=== PATIENT | female | born 1955 | race Caucasian/White ===

== ENCOUNTER → 2018-06-01 15:05 | Outpatient (CLI) | payer OTHER, SELFPAY ==
[2018-06-01 16:57] LABS: Absolute Neutrophil Count 5.5 X10^3/uL (2.0-7.7); Basophil# 0.03 X10^3/uL; Basophil% 0.4 % (0-1); Eosinophil# 0.16 X10^3/uL; Eosinophils% 1.9 % (0-5); Hematocrit 40.1 % (37-47); Hemoglobin 13.1 g/dl (12.0-15.0); Lymphocyte % 21.5 % (19-41); Mean Corp Hgb Conc 32.7 g/gl (32-36); Mean Corpuscular Hgb 28.9 pg (27.0-32.0); Mean Corpuscular Volume 88.5 fL (81-99); Mean Platelet Vol. 11.3 fl (6.2-12.0); Monocyte# 0.86 X10^3/uL; Monocyte% 10.3 % (0-10); Neutrophil # 5.51 X10^3/uL (2.7-7.7); Neutrophil % 65.7 % (47-70); Platelet Count 289 K/mm3 (150-450); RBC Distribution Width CV 12.8 % (11.6-14.6); RBC Distribution Width SD 40.8 fl (35.1-43.9); Red Blood Count 4.53 M/mm3 (4.2-5.4); White Blood Count 8.4 K/mm3 (4.4-11.0)
[2018-06-01 17:00] LABS: POSITIVE COUNT NO; POSITIVE DIFFERENTIAL NO; POSITIVE MORPHOLOGY NO
[2018-06-01 17:09] LABS: Vitamin D,25 Hydroxy 14.1 ng/mL (29.95-100.01)
[2018-06-01 17:17] LABS: ALB/GLOB Ratio 0.9 RATIO (0.9-2.4); AST(SGOT) 14 U/L (15-37); Alanine Aminotransfer ALT/SGPT 28 U/L (13-56); Albumin, Serum 3.8 g/dL (3.2-5.0); Alkaline Phosphatase 77 U/L (45-117); Anion Gap 11 (5-15); BUN 14 mg/dL (7-18); BUN/Creat Ratio 16.6 RATIO (10-20); Calcium,Total 8.8 mg/dL (8.5-10.1); Chloride 104 mmol/L (98-107); Creatinine, Serum 0.84 mg/dL (0.55-1.02); EST Glomerular Filtration Rate 73 mL/min (>60); Est Glom Filt Rate - Afr Amer 88 mL/min (>60); Globulin 4.1 g/dL (2.2-4.2); Glucose 93 mg/dL (74-106); Potassium 3.8 mmol/L (3.5-5.1); Protein, Total 7.9 g/dL (6.4-8.2); Sodium Level 141 mmol/L (136-145); Thyroid Stim Hormone (TSH) 1.24 uIU/mL (0.358-3.74)
== END ==
PROVIDERS: Family Provider Family Medicine Geriatric Medicine; PCP Family Medicine Geriatric Medicine; Visit Provider Family Medicine Geriatric Medicine
DX: E55.9 Vitamin D deficiency, unspecified (principal); R53.83 Other fatigue
CPT/HCPCS: 36415; 80053; 82306; 84443; 85025

== ENCOUNTER → 2019-06-11 | Outpatient (CLI) | payer OTHER, SELFPAY ==
[2019-06-11 12:50] LABS: Absolute Lymphocyte Count 1.24 X10^3/uL (0.83-4.51); Absolute Neutrophil Count 3.4 X10^3/uL (2.0-7.7); Basophil# 0.05 X10^3/uL; Basophil% 0.9 % (0-1); Eosinophil# 0.15 X10^3/uL; Eosinophils% 2.8 % (0-5); Hematocrit 41.1 % (37-47); Hemoglobin 13.1 g/dL (12.0-15.0); Lymphocyte # 1.24 X10^3/ul (4.0); Lymphocyte % 22.8 % (19-41); Mean Corp Hgb Conc 31.9 g/dL (32-36); Mean Corpuscular Hgb 28.7 pg (27.0-32.0); Mean Corpuscular Volume 90.1 fL (81-99); Monocyte# 0.61 X10^3/uL; Monocyte% 11.2 % (0-10); NRBC Flagged by Analyzer 0 % (0-5); Neutrophil # 3.37 X10^3/uL (2.7-7.7); Neutrophil % 61.9 % (47-70); Platelet Count 279 K/mm3 (150-450); RBC Distribution Width CV 12.2 % (11.6-14.6); RBC Distribution Width SD 40.3 fl (35.1-43.9); Red Blood Count 4.56 M/mm3 (4.2-5.4); White Blood Count 5.4 K/mm3 (4.4-11.0)
[2019-06-11 13:03] LABS: Vitamin D,25 Hydroxy 17.7 ng/mL (29.95-100.01)
[2019-06-11 13:06] LABS: AST(SGOT) 17 U/L (15-37); Alanine Aminotransfer ALT/SGPT 24 U/L (13-56); Albumin, Serum 3.9 g/dL (3.2-5.0); Alkaline Phosphatase 66 U/L (45-117); Anion Gap 7 (5-15); BUN 14 mg/dL (7-18); BUN/Creat Ratio 21.1 RATIO (10-20); Calcium,Total 8.8 mg/dL (8.5-10.1); Chloride 106 mmol/L (98-107); Creatinine, Serum 0.66 mg/dL (0.55-1.02); EST Glomerular Filtration Rate 95 mL/min (>60); Est Glom Filt Rate - Afr Amer 115 mL/min (>60); Glucose 88 mg/dL (74-106); Potassium 3.8 mmol/L (3.5-5.1); Protein, Total 7.9 g/dL (6.4-8.2); Sodium Level 139 mmol/L (136-145)
== END | disposition home or self-care (01) ==
LOC: POLAB3 11:28
PROVIDERS: Family Provider Family Medicine Geriatric Medicine; PCP Family Medicine Geriatric Medicine; Visit Provider Family Medicine Geriatric Medicine
DX: E55.9 Vitamin D deficiency, unspecified (principal); R53.83 Other fatigue
CPT/HCPCS: 36415; 80053; 82306; 84443; 85025

== ENCOUNTER → 2021-05-03 10:45 | Outpatient (CLI) | payer MEDICARE, BC, SELFPAY ==
[2021-05-03 12:31] LABS: Absolute Lymphocyte Count 1.36 X10^3/uL (0.83-4.51); Absolute Neutrophil Count 3.2 X10^3/uL (2.0-7.7); Basophil# 0.06 X10^3/uL; Basophil% 1.1 % (0-1); Eosinophil# 0.13 X10^3/uL; Eosinophils% 2.5 % (0-5); Hematocrit 41.6 % (37-47); Hemoglobin 13.4 g/dL (12.0-15.0); Lymphocyte # 1.36 X10^3/ul (0.83-4.51); Lymphocyte % 25.7 % (19-41); Mean Corp Hgb Conc 32.2 g/dL (32-36); Mean Corpuscular Hgb 28.9 pg (27.0-32.0); Mean Corpuscular Volume 89.7 fL (81-99); Mean Platelet Vol. 11.2 fl (6.2-12.0); Monocyte# 0.56 X10^3/uL; Monocyte% 10.6 % (0-10); NRBC Flagged by Analyzer 0 % (0-5); Neutrophil # 3.17 X10^3/uL (2.7-7.7); Neutrophil % 59.7 % (47-70); Platelet Count 302 K/mm3 (150-450); RBC Distribution Width CV 12.5 % (11.6-14.6); RBC Distribution Width SD 41.4 fl (35.1-43.9); Red Blood Count 4.64 M/mm3 (4.2-5.4); White Blood Count 5.3 K/mm3 (4.4-11.0)
[2021-05-03 12:53] LABS: Vitamin D,25 Hydroxy 17.4 ng/mL
[2021-05-03 12:59] LABS: ALB/GLOB Ratio 0.9 RATIO (0.9-2.4); AST(SGOT) 20 U/L (15-37); Alanine Aminotransfer ALT/SGPT 30 U/L (13-56); Albumin, Serum 3.8 g/dL (3.2-5.0); Alkaline Phosphatase 67 U/L (45-117); Anion Gap 9 (5-15); BUN 15 mg/dL (7-18); BUN/Creat Ratio 21.4 RATIO (10-20); Calcium,Total 9.1 mg/dL (8.5-10.1); Chloride 107 mmol/L (98-107); EST Glomerular Filtration Rate 89 mL/min (>60); Est Glom Filt Rate - Afr Amer 108 mL/min (>60); Globulin 4.4 g/dL (2.2-4.2); Glucose 92 mg/dL (74-106); Potassium 3.7 mmol/L (3.5-5.1); Protein, Total 8.2 g/dL (6.4-8.2); Sodium Level 139 mmol/L (136-145); Thyroid Stim Hormone (TSH) 1.32 uIU/mL (0.358-3.74)
== END ==
PROVIDERS: PCP Family Medicine Geriatric Medicine; Visit Provider Family Medicine Geriatric Medicine
DX: E55.9 Vitamin D deficiency, unspecified (principal); R53.83 Other fatigue
CPT/HCPCS: 36415; 80053; 82306; 84443; 85025

== ENCOUNTER → 2022-05-15 | Outpatient (CLI) | payer MEDICARE, BC, SELFPAY ==
[2022-05-15 17:29] LABS: Absolute Lymphocyte Count 1.56 X10^3/uL (0.83-4.51); Absolute Neutrophil Count 4.4 X10^3/uL (2.0-7.7); Basophil# 0.05 X10^3/uL; Basophil% 0.7 % (0-1); Eosinophil# 0.27 X10^3/uL; Eosinophils% 3.9 % (0-5); Hematocrit 42.8 % (37-47); Hemoglobin 14.2 g/dL (12.0-15.0); Lymphocyte # 1.56 X10^3/ul (0.83-4.51); Lymphocyte % 22.4 % (19-41); Mean Corp Hgb Conc 33.2 g/dL (32-36); Mean Corpuscular Hgb 29.6 pg (27.0-32.0); Mean Corpuscular Volume 89.4 fL (81-99); Mean Platelet Vol. 11.2 fl (6.2-12.0); Monocyte# 0.68 X10^3/uL; Monocyte% 9.8 % (0-10); NRBC Flagged by Analyzer 0 % (0-5); Neutrophil # 4.39 X10^3/uL (2.7-7.7); Neutrophil % 62.9 % (47-70); Platelet Count 297 K/mm3 (150-450); RBC Distribution Width SD 42.6 fl (35.1-43.9); Red Blood Count 4.79 M/mm3 (4.2-5.4)
[2022-05-15 18:14] LABS: Vitamin D,25 Hydroxy 23.6 ng/mL
[2022-05-15 18:16] LABS: ALB/GLOB Ratio 0.9 RATIO (0.9-2.4); AST(SGOT) 21 U/L (15-37); Alanine Aminotransfer ALT/SGPT 30 U/L (13-56); Alkaline Phosphatase 74 U/L (45-117); Anion Gap 8 (5-15); BUN 13 mg/dL (7-18); BUN/Creat Ratio 19.4 RATIO (10-20); Calcium,Total 9.3 mg/dL (8.5-10.1); Chloride 108 mmol/L (98-107); Creatinine, Serum 0.67 mg/dL (0.55-1.02); EST Glomerular Filtration Rate 93 mL/min (>60); Est Glom Filt Rate - Afr Amer 113 mL/min (>60); Globulin 4.4 g/dL (2.2-4.2); Glucose 110 mg/dL (74-106); Potassium 3.6 mmol/L (3.5-5.1); Protein, Total 8.4 g/dL (6.4-8.2); Sodium Level 140 mmol/L (136-145)
== END | disposition home or self-care (01) ==
LOC: POLAB3 13:46
PROVIDERS: PCP Family Medicine Geriatric Medicine; Visit Provider Family Medicine Geriatric Medicine
DX: E55.9 Vitamin D deficiency, unspecified (principal); R53.83 Other fatigue
CPT/HCPCS: 36415; 80053; 82306; 84443; 85025

== ENCOUNTER → 2023-06-06 | Outpatient (CLI) | payer MEDICARE, BC, SELFPAY ==
[2023-06-06 12:28] LABS: Absolute Lymphocyte Count 1.58 X10^3/uL (0.83-4.51); Absolute Neutrophil Count 3.5 X10^3/uL (2.0-7.7); Basophil# 0.06 X10^3/uL; Eosinophil# 0.22 X10^3/uL; Eosinophils% 3.7 % (0-5); Hematocrit 41.9 % (37-47); Hemoglobin 13.1 g/dL (12.0-15.0); Lymphocyte # 1.58 X10^3/ul (0.83-4.51); Lymphocyte % 26.6 % (19-41); Mean Corp Hgb Conc 31.3 g/dL (32-36); Mean Corpuscular Hgb 28.4 pg (27.0-32.0); Mean Corpuscular Volume 90.7 fL (81-99); Mean Platelet Vol. 10.8 fl (6.2-12.0); Monocyte# 0.56 X10^3/uL; Monocyte% 9.4 % (0-10); NRBC Flagged by Analyzer 0 % (0-5); Neutrophil % 59.1 % (47-70); Platelet Count 298 K/mm3 (150-450); RBC Distribution Width CV 12.7 % (11.6-14.6); RBC Distribution Width SD 42.1 fl (35.1-43.9); Red Blood Count 4.62 M/mm3 (4.2-5.4); White Blood Count 5.9 K/mm3 (4.4-11.0)
[2023-06-06 12:48] LABS: Vitamin D,25 Hydroxy 25.5 ng/mL
[2023-06-06 12:54] LABS: ALB/GLOB Ratio 0.8 RATIO (0.9-2.4); AST(SGOT) 23 U/L (15-37); Alanine Aminotransfer ALT/SGPT 34 U/L (13-56); Albumin, Serum 3.8 g/dL (3.2-5.0); Alkaline Phosphatase 69 U/L (45-117); Anion Gap 5 (5-15); BUN 12 mg/dL (7-18); BUN/Creat Ratio 17.3 RATIO (10-20); Chloride 105 mmol/L (98-107); Creatinine, Serum 0.69 mg/dL (0.55-1.02); EST Glomerular Filtration Rate 90 mL/min (>60); Est Glom Filt Rate - Afr Amer 109 mL/min (>60); Globulin 4.5 g/dL (2.2-4.2); Glucose 97 mg/dL (74-106); Potassium 4.1 mmol/L (3.5-5.1); Protein, Total 8.3 g/dL (6.4-8.2); Sodium Level 138 mmol/L (136-145); Thyroid Stim Hormone (TSH) 1.51 uIU/mL (0.358-3.74)
== END | disposition home or self-care (01) ==
PROVIDERS: PCP Family Medicine Geriatric Medicine; Visit Provider Family Medicine Geriatric Medicine
DX: R53.83 Other fatigue (principal); E55.9 Vitamin D deficiency, unspecified
CPT/HCPCS: 36415; 80053; 82306; 84443; 85025

== ENCOUNTER → 2024-06-08 | Outpatient (CLI) | payer MEDICARE, BC, SELFPAY ==
[2024-06-08 10:07] LABS: Absolute Lymphocyte Count 1.47 X10^3/uL (0.83-4.51); Absolute Neutrophil Count 3.6 X10^3/uL (2.0-7.7); Basophil# 0.04 X10^3/uL; Basophil% 0.7 % (0-1); Eosinophil# 0.21 X10^3/uL; Eosinophils% 3.6 % (0-5); Hematocrit 40.9 % (37-47); Hemoglobin 13.2 g/dL (12.0-15.0); Lymphocyte # 1.47 X10^3/ul (0.83-4.51); Mean Corp Hgb Conc 32.3 g/dL (32-36); Mean Corpuscular Hgb 28.8 pg (27.0-32.0); Mean Corpuscular Volume 89.3 fL (81-99); Mean Platelet Vol. 9.7 fl (6.2-12.0); Monocyte# 0.59 X10^3/uL; NRBC Flagged by Analyzer 0 % (0-5); Neutrophil # 3.56 X10^3/uL (2.7-7.7); Neutrophil % 60.5 % (47-70); Platelet Count 275 K/mm3 (150-450); RBC Distribution Width CV 12.6 % (11.6-14.6); RBC Distribution Width SD 41.1 fl (35.1-43.9); Red Blood Count 4.58 M/mm3 (4.2-5.4); White Blood Count 5.9 K/mm3 (4.4-11.0)
[2024-06-08 10:39] LABS: Vitamin D,25 Hydroxy 9.6 ng/mL
[2024-06-08 11:02] LABS: ALB/GLOB Ratio 0.9 RATIO (0.9-2.4); AST(SGOT) 20 U/L (15-37); Alanine Aminotransfer ALT/SGPT 35 U/L (13-56); Albumin, Serum 3.8 g/dL (3.2-5.0); Alkaline Phosphatase 69 U/L (45-117); Anion Gap 7 (5-15); BUN 9 mg/dL (7-18); BUN/Creat Ratio 12.4 RATIO (10-20); Chloride 107 mmol/L (98-107); Creatinine, Serum 0.72 mg/dL (0.55-1.02); EST Glomerular Filtration Rate 85 mL/min (>60); Est Glom Filt Rate - Afr Amer 103 mL/min (>60); Globulin 4.3 g/dL (2.2-4.2); Glucose 107 mg/dL (74-106); Protein, Total 8.1 g/dL (6.4-8.2); Sodium Level 139 mmol/L (136-145)
== END | disposition home or self-care (01) ==
LOC: POLAB3 09:57
PROVIDERS: PCP Family Medicine Geriatric Medicine; Visit Provider Family Medicine Geriatric Medicine
DX: R53.83 Other fatigue (principal); E55.9 Vitamin D deficiency, unspecified
CPT/HCPCS: 36415; 80053; 82306; 84443; 85025

== ENCOUNTER 2025-02-14 15:51 | Emergency (ER) | payer MEDICARE, BC, SELFPAY ==
[2025-02-14 15:53] VITALS: BP 140/84; PULSE 87; RESP 16; TEMP 36.6; O2SAT 98; BMI 33.3
--- NOTE | 2025-02-14 16:20 | ED.RN ---
Patient leg wrapped with miriam bandage per Dr. Aparicio's order. Crutches brought bedside to assist patient up to a standing position. Patient rolled to L side and sat up in bed moaning. Patient stated I think I need to get up on the other side. This nurse replied that the pain will be present on the other side also and encouraged patient to continue trying to stand as she was already in a near standing position. Patient began screaming at this nurse and stated You are going to come over to this side of the bed right now and you are going to bring the crutches with you. This nurse asked the patient to not make demands of this RN, as this RN was trying to help the patient. This RN then went around to the R side of the bed without further prompting by patient to assist patient with standing. 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 Patient stated that she saw my face when I walked into the room, despite this RN having already been in the room 3 times prior. Patient demanded my name and this RN gave my name to her. Patient put her hand up towards my face, screamed that I needed to get out of my room now and get someone else. research and evaluation analyst Yoanna notified of situation and went bedside to speak to patient.
--- NOTE | 2025-02-14 16:25 | EX.ED.DYSGE1 ---
HPI History of Present Illness Chief Complaint: Lower Extremity Injury Narrative Narrative: Chief complaint and HPI: Left posterior thigh pain. 69-year-old female with past medical history of depression and anxiety presents for evaluation of left posterior thigh pain. Patient states prior to arrival she accidentally slipped on a dog bone that was under a blanket causing her to fall with her left lower extremity out in front of her. Patient states she developed pain in her left posterior thigh that makes it difficult to ambulate. Mild swelling in the area. Denies any numbness or tingling. Did not hit her head. No LOC. Denies pain elsewhere. Denies any pain in the hip joint or knee. Review of systems: See HPI Medications: As listed on the chart Allergies: As listed on the chart PFSH: Per chart Vital signs: As listed on the chart. Reviewed. Physical exam: Gen: A&O x3, NAD Head: Normocephalic, atraumatic Eyes: No sclera icterus, conjunctiva clear, PERRL ENT: Moist mucous membranes, atraumatic Neck: Full range of motion CV: RRR, no murmurs, no peripheral edema Resp: Lungs CTA BL, no w/r/c GI: Abd soft, non-distended, non-tender, no r/r/g Musc: Full range of motion of all of the extremities including the left lower extremity, no deformity, she has mild swelling and pain to palpation of the left hamstring muscle-muscle is intact with good flexion and extension of the hip and knee, no ecchymosis/crepitus/erythema/warmth, no tenderness of pelvis/hip joint/knee, no joint swelling, compartments soft, femoral/DP PT pulses +2 bilaterally, strength is 5 out of 5, good capillary, sensation intact Skin: Warm, dry Neuro: Alert, oriented, grossly intact Psych: Cooperative, appropriate mood and affect [facility] Medical History (Updated 02/14/25 @ 16:[address] Ever Lo, DO) Anxiety Depression Home Medications ?Medication ?Instructions ?Recorded ?Last Taken ?Type acetaminophen 325 mg capsule 325 mg PO ONCE PRN 04/03/23 Unknown History (Tylenol) citalopram 10 mg tablet (Celexa) 10 mg PO DAILY 04/03/23 Unknown History ibuprofen 200 mg capsule 200 mg PO Q6H PRN 04/03/23 Unknown History cyclobenzaprine 5 mg tablet 5 mg PO TID PRN muscle spasm 3 02/14/25 Unknown Rx days #9 tabs Allergy/AdvReac Type Severity Reaction Status Date / Time No Known Allergies Allergy Verified 02/14/25 15:54 Surgical History (Updated 02/14/25 @ 16:00 by Lynda Chavez) H/O rhinoplasty Social History Smoking Status: Never smoker EXAM Physical Exam Const Vital Signs: 02/14/25 15:53 02/14/25 16:38 Temperature 97.8 F 97.8 F Temperature Source Oral Pulse Rate 87 87 Respiratory Rate 16 16 Blood Pressure 140/84 H 140/84 H Blood Pressure Mean 102 102 Pulse Ox 98 98 Oxygen Delivery Method Room Air MDM MDM MDM Narrative Medical decision making narrative: 69-year-old female with past medical history of depression and anxiety presents for evaluation of left posterior thigh pain. Patient states prior to arrival she accidentally slipped on a dog bone that was under a blanket causing her to fall with her left lower extremity out in front of her. Patient states she developed pain in her left posterior thigh that makes it difficult to ambulate. Denies injury elsewhere. Did not hit her head. No LOC. See physical exam findings. Patient has mild swelling and tenderness in the left hamstring muscle. Muscles intact with good flexion and extension of the hip and knee. She has no deformity. She is neurovascularly intact. She has no pain or swelling in the joints. She has full range of motion of the lower extremity with intact strength. Suspect pain is secondary to a hamstring injury. I do not think any x-rays are needed at this time. Patient in agreement. Patient was educated on RICE therapy. Will apply Michael wrap to the left thigh for compression. [place] given for pain as patient did not drive. Will prescribe crutches for ambulation as needed. Patient tolerated ambulating with crutches well. Tylenol Motrin as needed for pain. Will give muscle relaxers for muscle spasm as needed. Follow-up with primary care physician. Return precautions explained. She confirmed understand plan. Patient stable to discharge home. Impression: 1. Left hamstring strain 2. Mechanical fall Discharge Plan Triage Chief Complaint: Lower Extremity Injury ED Provider: Klusty-Nish,Ever Dx/Rx/DC Orders Clinical Impression: Hamstring strain Instructions: ED Muscle Strain, Extremity, ED RICE Prescriptions: New cyclobenzaprine 5 mg tablet 5 mg PO TID PRN (Reason: muscle spasm) 3 Days Qty: 9 0RF No Action citalopram [Celexa] 10 mg tablet 10 mg PO DAILY acetaminophen [Tylenol] 325 mg capsule 325 mg PO ONCE PRN ibuprofen 200 mg capsule 200 mg PO Q6H PRN Primary Care Provider: Will Nj Chi Referrals: Will Nj Chi, MD [Primary Care Provider] - 3-5 Days Activity Restrictions/Additional Instructions: Follow-up with primary care physician. Crutches as needed for ambulation. Tylenol and Motrin for pain. Muscle relaxers as needed for muscle spasm. Muscle relaxers can increase falls, confusion, fatigue, lightheadedness. Do not drive or operate heavy machinery while taking these. Print Language: Burkinan Disposition Disposition: Home, Self Care
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
--- NOTE | 2025-02-14 16:30 | ED.RN ---
PT. SEEM AMBULATING W/ CRUTCHES IN ROOM, NO SOCKS OR SHOES IN PLACE. PT. OFFERED SHOES OR SOCKS. PT. STATED I DON'T HAVE SHOES. I DO NOT NEED SOCKS PT. EDUCATED ON SAFETY RISK, BUT DECLINED SOCKS AT THIS TIME
[2025-02-14] MEDS: HYDROcodone Bitartrate/Apap 5/325 Tablet PO (16:32)
[2025-02-14 16:38] VITALS: BP 140/84; PULSE 87; RESP 16; TEMP 36.6; O2SAT 98
== END 2025-02-14 17:08 | disposition home or self-care (01) ==
PROVIDERS: Emergency Provider Surgery; PCP Family Medicine Geriatric Medicine; Visit Provider Surgery
DX: S76.312A Strain of muscle, fascia and tendon of the posterior muscle group at thigh level, left thigh, initial encounter (principal); W01.0XXA Fall on same level from slipping, tripping and stumbling without subsequent striking against object, initial encounter; F32.A Depression, unspecified; F41.9 Anxiety disorder, unspecified; Z79.899 Other long term (current) drug therapy
CPT/HCPCS: 99285

== ENCOUNTER 2025-05-01 18:24 | Emergency (ER) | payer OTHER, MEDICARE, BC, SELFPAY ==
[2025-05-01 18:27] VITALS: BP 177/84; PULSE 82; RESP 16; TEMP 36.6; O2SAT 97; BMI 32.0
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
--- NOTE | 2025-05-01 19:12 | EKG12_ITS ---
Test Reason : DYSRHYTHMIA Blood Pressure : */* mmHG Vent. Rate : 73 BPM Atrial Rate : 73 BPM P-R Int : 172 ms QRS Dur : 132 ms QT Int : 430 ms P-R-T Axes : 52 -45 17 degrees QTcB Int : 473 ms Normal sinus rhythm Right bundle branch block Left anterior fascicular block Bifascicular block Abnormal ECG Confirmed by LISA VAZQUEZ, RHIANNA ([id number]), multimedia editor CHET MURPHY ([id number]) on 05/02/2025 8:38:45 AM Referred By: Confirmed By: RHIANNA GONZALEZ MD
[2025-05-01 19:44] LABS: Hematocrit 40.1 % (37-47); Hemoglobin 12.8 g/dL (12.0-15.0); Immature Granulocytes Count 0.030 X10^3/uL (0.0-0.0); Mean Corp Hgb Conc 31.9 g/dL (32-36); Mean Corpuscular Volume 88.3 fL (81-99); Mean Platelet Vol. 10.2 fl (6.2-12.0); NRBC Flagged by Analyzer 0 % (0-5); Platelet Count 264 K/mm3 (150-450); RBC Distribution Width CV 12.5 % (11.6-14.6); RBC Distribution Width SD 40.4 fl (35.1-43.9); Red Blood Count 4.54 M/mm3 (4.2-5.4); White Blood Count 6.2 K/mm3 (4.4-11.0)
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
--- OUTSIDE RECORDS SUMMARY | 2025-05-01 19:56 | XMS RPT_ITS | CCD ---
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 Will Nj Chi Primary Care Provider Dr. Will Nj Chi Referring Provider GLENROY Acharya Attending Provider Dr. Will Nj MD, Chi Primary Care Provider Dr. Ever Lo DO Emergency Provider Will Nj Chi Primary Care Unavailable Ever Lo Attending Unavailabl e Will Nj Chi Attending Unavailable Will Nj Chi Primary Care Unavailable Allergies Allergy Classification Reported Allergen(s) Allergy Type Date of Onset Reaction(s) Facility (3 sources) Azithromycin; Translations: [AZITHROMYCIN] Drug Allergy 12-24-2005 [facility] Work Phone: (3 sources) Erythromycin; Translations: [ERYTHROMYCIN] Drug Allergy 12-24-2005 [facility] Work Phone: Medications Current Medications Medication Drug Class(es) Dates Sig (Normalized) Sig (Original) acetaminophen 325 mg oral capsule (2 sources) Start: 04-03-2023 take 1 capsule by mouth once as needed Acetaminophen (Tylenol) 325 mg capsule Active 325 mg PO ONCE as needed April 03, 2023 12:00am citalopram 10 mg oral tablet (4 sources) Serotonin Reuptake Inhibitor Start: 04-03-2023 take 1 tablet by mouth once daily Citalopram (Celexa) 10 mg tablet Active 10 mg PO DAILY April 03, 2023 12:00am take 1 tablet by mouth once terry y citalopram (CELEXA) 20 mg tablet Take 20 mg by mouth once daily. 0 Active Comment on above: Take 20 mg by mouth once daily. cyclobenzaprine hydrochloride 5 mg oral tablet (1 source) Muscle Relaxant Start: 025 take 1 tablet by mouth three times daily as needed for muscle spasms Cyclobenzaprine 5 mg tablet Active 5 mg PO THREE TIMES A DAY as needed for muscle spasm 9 3 0 February 14, 2025 12:00am ibuprofen 200 mg oral capsule (2 sources) Nonsteroidal Anti-inflammatory Drug Start: 023 take 1 capsule by mouth every six hours as needed Ibuprofen 200 mg capsule Active 200 mg PO EVERY 6 HOURS as needed April 03, 2023 12:00am Completed/Discontinued Medications Medication Drug Class(es) Dates Sig (Normalized) Sig (Original) amoxicillin 875 mg / clavulanate 125 mg oral tablet (2 sources) Penicillin-class Antibacterial Start: 04-03-2023 End: 04-13-2023 Amoxicillin-Pot Clavulanate 875-125 mg tablet Discontinued 1 {tbl} PO Q12H 20 10 0 April 03, 2023 12:00am April 12, 2023 12:00am April 13, 2023 12:04am Acute sinusitis, unspecified Start: 04-03-2023 End: 04-13-2023 take 1 tablet by mouth every twelve hours Amoxicillin-Pot Clavulanate Discontinued 1 TABLET PO Q12H 20 10 April 02, 2023 11:00pm April 12, 2023 11:04pm DULoxetine 30 mg delayed release oral capsule (2 sources) Serotonin and Norepinephrine Reuptake Inhibitor Start: 10-29-2011 take 1 capsule by mouth once daily duloxetine (CYMBALTA) 30 mg ORAL capsule Take 1 capsule by mouth once daily. 30 capsule 0 10/29/2011 Active Comment on above: Take 1 capsule by [facility] once daily. gentamicin 0.003 mg/mg ophthalmic ointment (2 sources) Start: 02-28-2018 gentamicin (GENTAK) 0.3 % (3 mg/gram) ophthalmic ointment Indications: Irritation of left eye Use 1 application in the left eye three times daily. 20 g 0 02/28/2018 Active Comment on above: Use 1 application in the left eye three times daily. PARoxetine hydrochloride 10 mg oral tablet (4 sources) Serotonin Reuptake Inhibitor Start: 10-28-2011 take 1 tablet by mouth once daily paroxetine (PAXIL) 10 mg ORAL tablet Take 1 tablet by mouth once daily. 30 tablet 5 10/28/2011 Active Start: 10-28-2011 take 1 tablet by rayo th once daily paroxetine (PAXIL) 20 mg ORAL tablet Take 1 tablet by mouth once daily. Take with 10 mg tablet for a total of 30 mg daily. 30 tablet 5 10/28/2011 Active Comment on above: Take 1 tablet by rayo th once daily. Take 1 tablet by rayo th once daily. Take with 10 mg tablet for a total of 30 mg daily. Problems Active Problems Problem Classification Problem Date Documented Da te Episodic/Chronic Anxiety disorders (4 sources) Panic disorder without agoraphobia; Translations: [Panic disorder [episodic paroxysmal anxiety]] Onset: 08-21-2009 05-15-2006 Chronic Disorders of lipid metabolism (2 sources) Mixed hyperlipidemia; Translations: [Mixed hyperlipidemia] Onset: 05-15-2006 05-15-2006 Chronic Disorders of teeth and jaw (3 sources) Dental abscess; Translations: [Periapical abscess without sinus] 04-03-2023 Episodic Other connective tissue disease (1 source) Pain in left thigh; Translations: [Pain in left thigh] Onset: 02-21-2025 Episodic Other ear and sense organ disorders (2 sources) Hearing loss; Translations: [Unspecified hearing loss, unspecified ear] Onset: 05-15-2006 05-15-2006 Chronic Other nutritional; endocrine; and metabolic disorders (2 sources) Obesity; Translations: [Obesity, unspecified] Onset: 05-15-2006 05-15-2006 Chronic Other upper respiratory infections (2 sources) Sore throat symptom; Translations: [Acute pharyngitis, unspecified] Episodic Prolapse of female genital organs (2 sources) Incomplete uterovaginal prolapse; Translations: [Incomplete uterovaginal prolapse] Onset: 08-04-2006 08-21-2009 Chronic Residual codes; unclassified (1 source) Influenza-like symptoms; Translations: [Other general symptoms and signs] Episodic Sprains and strains (1 source) Hamstring injury; Translations: [Strain of muscle, fascia and tendon of the posterior muscle group at thigh level, unspecified thigh, initial encounter] 02-14-2025 Episodic Past or Other Problems Problem Classification Problem Date Documented Da te Episodic/Chronic Abdominal hernia (2 sources) Inguinal hernia; Translations: [Unilateral inguinal hernia, without obstruction or gangrene, not specified as recurrent] Onset: 09-22-2008 08-21-2009 Episodic Malaise and fatigue (1 source) Other fatigue; Translations: [Other fatigue] Onset: 07-06-2024 Episodic Other lower respiratory disease (2 sources) Cough; Translations: [Cough] Onset: 09-22-2008 08-21-2009 Episodic Other non-traumatic joint disorders (2 sources) Bilateral shoulder joint pain; Translations: [Pain in right shoulder] Onset: 06-03-2016 06-03-2016 Episodic Spondylosis; intervertebral disc disorders; other back problems (2 sources) Spinal stenosis in cervical region; Translations: [Spinal stenosis, cervical region] Onset: 06-05-2016 06-05-2016 Episodic Results Test Name Value Interpretation Reference Range Facility Emergency Department Summary on 02-14-2025 Emergency Department Summary [facility] Medical Records Department [address] [place] [address] Emergency Department Summary 02/14/25 MR#: [id number] Acct: [id number] Name: ABBY COULTER Rep #: [id number] : [id number] From: Ever Lo DO PCP: Dr. Will Nj MD Status:REG ER Location: ED HPI History of Present Illness Chief Complaint: Lower Extremity Injury Narrative Narrative: Chief complaint and HPI: Left posterior thigh pain. 69-year-old female with past medical history of depression and anxiety presents for evaluation of left posterior thigh pain. Patient states prior to arrival she accidentally slipped on a dog bone that was under a blanket causing her to fall with her left lower extremity out in front of her. Patient states she developed pain in her left posterior thigh that makes it difficult to ambulate. Mild swelling in the area. Denies any numbness or tingling. Did not hit her head. No LOC. Denies pain elsewhere. Denies any pain in the hip joint or knee. Review of systems: See HPI Medications: As listed on the chart Allergies: As listed on the chart PFSH: Per chart Vital signs: As listed on the chart. Reviewed. Physical exam: Gen: A O x3, NAD Head: Normocephalic, atraumatic Eyes: No sclera icterus, conjunctiva clear, PERRL ENT: Moist mucous membranes, atraumatic Neck: Full range of motion CV: RRR, no murmurs, no peripheral edema Resp: Lungs CTA BL, no w/r/c GI: Abd soft, non-distended, non-tender, no r/r/g Musc: Full range of motion of all of the extremities including the left lower extremity, no deformity, she has mild swelling and pain to palpation of the left hamstring muscle-muscle is intact with good flexion and extension of the hip and knee, no ecchymosis/crepitus/ erythema/warmth, no tenderness of pelvis/hip joint/knee, no joint swelling, compartments soft, femoral/DP PT pulses +2 bilaterally, strength is 5 out of 5, good capillary, sensation intact Skin: Warm, dry Neuro: Alert, oriented, grossly intact Psych: Cooperative, appropriate mood and affect PFSH PFSH Medical History (Updated 02/14/25 @ 16:[address] Ever Lo DO) Anxiety Depression Home Medications ???Medication ???Instructions ???Recorded ???Last Taken ???Type acetaminophen 325 mg capsule 325 mg PO ONCE PRN 04/03/23 Unknow n History (Tylenol) citalopram 10 mg tablet (Celexa) 10 mg PO DAILY 04/03/23 Unknown Hi story ibuprofen 200 mg capsule 200 mg PO Q6H PRN 04/03/23 Unknown History cyclobenzaprine 5 mg tablet 5 mg PO TID PRN muscle spasm 3 Unknown Rx days #9 tabs Allergy/AdvReac Type Severity Reaction Status Date / Time No Known Allergies Allergy Verified 02/14/25 15:54 Surgical History (Updated 02/14/25 @ 16:00 by Lynda Chavez) H/O rhinoplasty Social History Smoking Status: Never smoker EXAM Physical Exam Const Vital Signs: 02/14/25 15:53 02/14/25 16:38 Temperature 97.8 F 97.8 F Temperature Source Oral Pulse Rate 87 87 Respiratory Rate 16 16 Blood Pressure 140/84 H 140/84 H Blood Pressure Mean 102 102 Pulse Ox 98 98 Oxygen Delivery Method Room Air MDM MDM MDM Narrative Medical decision making narrative: 69-year-old female with past medical history of depression and anxiety presents for evaluation of left posterior thigh pain. Patient states prior to arrival she accidentally slipped on a dog bone that was under a blanket causing her to fall with her left lower extremity out in front of her. Patient states she developed pain in her left posterior thigh that makes it difficult to ambulate. Denies injury elsewhere. Did not hit her head. No LOC. See physical exam findings. Patient has mild swelling and tenderness in the left hamstring muscle. Muscles intact with good flexion and extension of the hip and knee. She has no deformity. She is neurovascularly intact. She has no pain or swelling in the joints. She has full range of motion of the lower extremity with intact strength. Suspect pain is secondary to a hamstring injury. I do not think any x-rays are needed at this time. Patient in agreement. Patient was educated on RICE therapy. Will apply Michael wrap to the left thigh for compression. Merrick given for pain as patient did not drive. Will prescribe crutches for ambulation as needed. Patient tolerated ambulating with crutches well. Tylenol Motrin as needed for pain. Will give muscle relaxers for muscle spasm as needed. Follow-up with primary care physician. Return precautions explained. She confirmed understand plan. Patient stable to discharge home. Impression: 1. Left hamstring strain 2. Mechanical fall Discharge Plan Triage Chief Complaint: Lower Extremity Injury ED Provider: Ever Lo Dx/Rx (more content not included)... Normal [facility] CBC W/Diff, Automatedon 05-28 Absolute Lymph 1.47 X10 3/uL Normal 0.83-4.51 [facility] Comment on above: Performed By: #### L 100.0100, L500.4050, L506.1000, L501.9520 #### [facility] [address] [place], [address] Absolute Neut 3.6 X10 3/uL Normal 2.0-7.7 [facility] Comment on above: Performed By: #### L 100.0100, L500.4050, L506.1000, L501.9520 #### [facility] [address] [place], [address] Basophils/100 WBC (Bld) 0.7 % Normal 0-1 [facility] Comment on above: Performed By: #### L 100.0100, L500.4050, L506.1000, [id number] #### [facility] [address] [place], [address] Eosinophils/100 WBC (Bld) 3.6 % Normal 0-5 [facility] Comment on above: Performed By: #### L 100.0100, L500.4050, L506.1000, L501.9520 #### [facility] [address] [place], [address] Erythrocyte distribution width (RBC) [Ratio] 12.6 % Normal 11.6-14.6 [facility] Comment on above: Performed By: #### L 100.0100, L500.4050, L506.1000, [id number] #### [facility] [address] [place], [address] Hematocrit (Bld) [Volume fraction] 40.9 % Normal 37-47 [facility] Comment on above: Performed By: #### L 100.0100, L500.4050, L506.1000, L501.9520 #### [facility] [address] [place], [address] Hemoglobin (Bld) [Mass/Vol] 13.2 g/dL Normal 12.0-15.0 [facility] Comment on above: Performed By: #### L 100.0100, L500.4050, L506.1000, L501.9520 #### [facility] [address] [place], [address] IG% 0.200 Normal 0.0-0.9 [facility] Comment on above: Result Comment: IG% - Immature Granulocytes (promyelocytes, myelocytes and metamyelocytes) > 1% indicates that a LEFT SHIFT is Present. Performed By: #### L 100.0100, L500.4050, L506.1000, L501.9520 #### [facility] [address] [place], [address] Lymphocytes/100 WBC (Bld) 25.0 % Normal 19-41 [facility] Comment on above: Performed By: #### L 100.0100, L500.4050, L506.1000, [id number] #### [facility] [address] [place], [address] MCH (RBC) [Entitic mass] 28.8 pg Normal 27.0-32.0 [facility] Comment on above: Performed By: #### L 100.0100, L500.4050, L506.1000, L501.9520 #### [facility] [address] [place], [address] MCHC (RBC) [Mass/Vol] 32.3 g/dL Normal 32-36 [facility] Comment on above: Performed By: #### L 100.0100, L500.4050, L506.1000, L501.9520 #### [facility] [address] [place], [address] MCV (RBC) [Entitic vol] 89.3 fL Normal 81-[address] [facility] Comment on above: Performed By: #### L 100.0100, L500.4050, L506.1000, L501.9520 #### [facility] [address] [place], [address] Monocytes/100 WBC (Bld) 10.0 % Normal 0-10 [facility] Comment on above: Performed By: #### L 100.0100, L500.4050, L506.1000, L501.9520 #### [facility] [address] [place], [address] Neutrophils/100 WBC (Bld) 60.5 % Normal 47-70 [facility] Comment on above: Performed By: #### L 100.0100, L500.4050, L506.1000, L501.9520 #### [facility] [address] [place], [address] Nucleated RBC (Bld) [#/Vol] 0 10*3/uL Normal 0-5 [facility] Comment on above: Performed By: #### L 100.0100, L500.4050, L506.1000, L501.9520 #### [facility] [address] [place], [address] Platelet mean volume (Bld) [Entitic vol] 9.7 fL Normal 6.2-12.0 [facility] Comment on above: Performed By: #### L 100.0100, L500.4050, L506.1000, L501.9520 #### [facility] [address] [place], [address] Platelets (Bld) [#/Vol] 275 10*3/uL Normal 150-450 [facility] Comment on above: Performed By: #### L 100.0100, L500.4050, L506.1000, L501.9520 #### [facility] [address] [place], [address] RBC (Bld) [#/Vol] 4.58 10*6/uL Normal 4.2-5.4 [facility] Comment on above: Performed By: #### L 100.0100, L500.4050, L506.1000, L501.9520 #### [facility] [address] [place], [address] RDW SD 41.1 fl Normal 35.1-43.9 [facility] Comment on above: Performed By: #### L 100.0100, L500.4050, L506.1000, L501.9520 #### [facility] [address] [place], [address] WBC (Bld) [#/Vol] 5.9 10*3/uL Normal 4.4-11.0 [facility] Comment on above: Performed By: #### L 100.0100, L500.4050, L506.1000, L501.9520 #### [facility] [address] [place], [address] Comprehensive Metabolic Prof ilon 06-08-2024 Albumin [Mass/Vol] 3.8 g/dL Normal 3.2-5.0 [facility] Comment on above: Performed By: #### L 100.0100, L500.4050, L506.1000, L501.9520 #### [facility] [address] [place], [address] Albumin/Globulin [Mass ratio] 0.9 {ratio} Normal 0.9-2.4 [facility] Comment on above: Performed By: #### L 100.0100, L500.4050, L506.1000, L501.9520 #### [facility] [address] [place], [address] ALK P 69 U/L Normal 45-117 [facility] Comment on above: Performed By: #### L 100.0100, L500.4050, L506.1000, L501.9520 #### [facility] [address] [place], [address] ALT [Catalytic activity/Vol] 35 U/L Normal 13-56 [facility] Comment on above: Performed By: #### L 100.0100, L500.4050, L506.1000, L501.9520 #### [facility] [address] [place], [address] AST [Catalytic activity/Vol] 20 U/L Normal 15-37 [facility] Comment on above: Performed By: #### L 100.0100, L500.4050, L506.1000, L501.9520 #### [facility] [address] [place], [address] Bilirubin [Mass/Vol] 0.50 mg/dL Normal 0.20-1.00 [facility] Comment on above: Result Comment: For patients on eltrombopag therapy, use of Dimension Mccune TBIL is not recommended. Performed By: #### L 100.0100, L500.4050, L506.1000, L501.9520 #### [facility] [address] [place], [address] BUN/CRE 12.4 RATIO Normal 10-20 [facility] Comment on above: Performed By: #### L 100.0100, L500.4050, L506.1000, L501.9520 #### [facility] [address] [place], [address] CA,Total 9.0 mg/dL Normal 8.5-10.1 [facility] Comment on above: Performed By: #### L 100.0100, L500.4050, L506.1000, L501.9520 #### [facility] [address] [place], [address] Chloride [Moles/Vol] 107 mmol/L Normal 98-107 [facility] Comment on above: Performed By: #### L 100.0100, L500.4050, L506.1000, L501.9520 #### [facility] [address] [place], [address] CO2 [Moles/Vol] 25.0 mmol/L Normal 21.0-32.0 [facility] Comment on above: Performed By: #### L 100.0100, L500.4050, L506.1000, L501.9520 #### [facility] [address] [place], [address] Creatinine [Mass/Vol] 0.72 mg/dL Normal 0.55-1.02 [facility] Comment on above: Result Comment: The validity of the calculated GFR GFRAA in patients over 70 years has not been determined. Clinical correlation is essential. Performed By: #### L 100.0100, L500.4050, L506.1000, L501.9520 #### [facility] [address] [place], [address] EST GFR - AA 103 mL/min Normal >60 [facility] Comment on above: Result Comment: Afri can Gambian GFR Calc Performed By: #### L 100.0100, L500.4050, L506.1000, L501.9520 #### [facility] [address] [place], [address] GAP 7 Normal 5-15 [facility] Comment on above: Performed By: #### L 100.0100, L500.4050, L506.1000, L501.9520 #### [facility] [address] [place], [address] GFR/1.73 sq M.predicted among non-blacks MDRD (S/P/Bld) [Vol rate/Area] 85 mL/min/{1.73_m2} Normal >60 [facility] Comment on above: Result Comment: Non- GFR Calc Performed By: #### L 100.0100, L500.4050, L506.1000, L501.9520 #### [facility] [address] [place], [address] Globulin (S) [Mass/Vol] 4.3 g/dL High 2.2-4.2 [facility] Comment on above: Performed By: #### L 100.0100, L500.4050, L506.1000, L501.9520 #### [facility] [address] [place], [address] Glucose [Mass/Vol] 107 mg/dL High 74-106 [facility] Comment on above: Result Comment: Fast ing Glucose result from 100 to 125 mg/dL suggests IMPAIRED HOMEOSTASIS per A.D.A. criteria. Performed By: #### L 100.0100, L500.4050, L506.1000, L501.9520 #### [facility] [address] [place], [address] Potassium [Moles/Vol] 4.0 mmol/L Normal 3.5-5.1 [facility] Comment on above: Performed By: #### L 100.0100, L500.4050, L506.1000, L501.9520 #### [facility] [address] [place], [address] Sodium [Moles/Vol] 139 mmol/L Normal 136-145 [facility] Comment on above: Performed By: #### L 100.0100, L500.4050, L506.1000, L501.9520 #### [facility] [address] [place], [address] T PROT 8.1 g/dL Normal 6.4-8.2 [facility] Comment on above: Performed By: #### L 100.0100, L500.4050, L506.1000, L501.9520 #### [facility] [address] [place], [address] Urea nitrogen [Mass/Vol] 9 mg/dL Normal 7-18 [facility] Comment on above: Performed By: #### L 100.0100, L500.4050, L506.1000, L501.9520 #### [facility] [address] [place], [address] Thyroid Stim Hormone (TSH)on 06-08-2024 TSH 2.260 uIU/mL Normal 0.358-3.740 [facility] Comment on above: Performed By: #### L 100.0100, L500.4050, L506.1000, L501.9520 #### [facility] [address] [place], [address] Vitamin D,25 Hydroxyon 06-08 Vitamin D 25-OH 9.6 ng/mL Normal [facility] Comment on above: Result Comment: Maite min D 25(OH) Status Range Deficiency <20 ng/mL (50nmol/L) Insufficiency 20 - 30 ng/mL (50 - 75 nmol/L) Sufficiency 30 - 100 ng/mL (75 - 250 nmol/L) Toxicity >100 ng/mL (>250 nmol/L) Performed By: #### L 100.0100, L500.4050, L506.1000, L501.9520 #### [facility] [address] [place], [address] Absolute lymphocyte countOrd ered By: Will Clem on 06-06-2023 Lymphocytes Auto (Unsp spec) [#/Vol] 1.58 10*3/uL 0.83-4.51 [facility] Basophil percentageOrdered B y: Will Nj on 06-06-2023 Basophils/100 WBC (Bld) 1.0 % 0-1 [facility] Bilirubin [Mass/Vol] 0.50 mg/dL 0.20-1.00 [facility] Comment on above: For patients on eltr ombopag therapy, use of Dimension Mccune TBIL is not recommended. Chloride [Moles/Vol] 105 mmol/L 98-107 [facility] Eosinophils/100 WBC (Bld) 3.7 % 0-5 [facility] Glucose [Mass/Vol] 97 mg/dL 74-106 [facility] Neutrophils (Bld) [#/Vol] 3.5 10*3/uL 2.0-7.7 [facility] Neutrophils/100 WBC (Bld) 59.1 % 47-70 [facility] Potassium [Moles/Vol] 4.1 mmol/L 3.5-5.1 [facility] Protein [Mass/Vol] 8.3 g/dL 6.4-8.2 [facility] Sodium [Moles/Vol] 138 mmol/L 136-145 [facility] WBC (Bld) [#/Vol] 5.9 10*3/uL 4.4-11.0 [facility] Blood erythrocytes count (nu mber/volume)Ordered By: Will Nj on 06-06-2023 RBC (Bld) [#/Vol] 4.62 10*6/uL 4.2-5.4 [facility] Blood hemoglobin measurement (mass/volume)Ordered By: Will Nj on 06-06-2023 Hemoglobin (Bld) [Mass/Vol] 13.1 g/dL 12.0-15.0 [facility] Blood lymphocytes/100 leukoc ytesOrdered By: Will Nj on 06-06-2023 Lymphocytes/100 WBC (Bld) 26.6 % 19-41 [facility] Blood monocytes/100 leukocyt esOrdered By: Will Nj on 06-06-2023 Monocytes/100 WBC (Bld) 9.4 % 0-10 [facility] Blood platelet mean volumeOr dered By: Will Nj on 06-06-2023 Platelet mean volume (Bld) [Entitic vol] 10.8 fL 6.2-12.0 [facility] Determination of erythrocyte mean corpuscular volume (MCV)Ordered By: Will Nj on 06-06-2023 MCV (RBC) [Entitic vol] 90.7 fL 81-99 [facility] Hematocrit Auto (Bld) [Volum e fraction]Ordered By: Will Nj on 06-06-2023 Hematocrit (Bld) [Volume fraction] 41.9 % 37-47 [facility] - Chemistry and C hemistry - challengeOrdered By: Will Nj on 06-06-2023 ALP [Catalytic activity/Vol] 69 U/L 45-117 [facility] ALT [Catalytic activity/Vol] 34 U/L 13-56 [facility] CO2 [Moles/Vol] 28.0 mmol/L 21.0-32.0 [facility] Globulin (S) [Mass/Vol] 4.5 g/dL 2.2-4.2 [facility] Urea nitrogen/Creatinine [Mass ratio] 17.3 mg/mg 10-20 [facility] Laboratory - Hematology and Cell countsOrdered By: Will Nj on 06-06-2023 Erythrocyte distribution width (RBC) [Entitic vol] 42.1 fL 35.1-43.9 [facility] Erythrocyte distribution width (RBC) [Ratio] 12.7 % 11.6-14.6 [facility] Immature granulocytes/100 WBC (Bld) 0.200 % 0.0-0.9 [facility] Comment on above: IG% - Immature Granu locytes (promyelocytes, myelocytes and metamyelocytes) > 1% indicates that a LEFT SHIFT is Present. MCH (RBC) [Entitic mass] 28.4 pg 27.0-32.0 [facility] Nucleated RBC/100 WBC (Bld) [Ratio] 0 % 0-5 [facility] MCHC Auto (RBC) [Mass/Vol]Or dered By: Will Nj on 06-06-2023 MCHC (RBC) [Mass/Vol] 31.3 g/dL 32-36 [facility] No Panel InformationOrdered By: Will Nj on 06-06-2023 Estimated GFR (MDRD) Amer 109 mL/min >60 [facility] Comment on above: GFR Calc Estimated GFR (MDRD) Non-Af Amer 90 mL/min >60 [facility] Comment on above: Non- GFR Calc Thyroid Stimulating Hormone (TSH) 1.51 uIU/mL 0.358-3.74 [facility] Vitamin D 25-Hydroxy 25.5 ng/mL [facility] Comment on above: Vitamin D 25(OH) Sta tus Range Deficiency <20 ng/mL (50nmol/L) Insufficiency 20 - 30 ng/mL (50 - 75 nmol/L) Sufficiency 30 - 100 ng/mL (75 - 250 nmol/L) Toxicity >100 ng/mL (>250 nmol/L) Platelets bldOrdered By: Will Nj on 06-06-2023 Platelets (Bld) [#/Vol] 298 10*3/uL 150-450 [facility] Serum or plasma albumin isma urement (mass/volume)Ordered By: Will Nj on 06-06-2023 Albumin [Mass/Vol] 3.8 g/dL 3.2-5.0 [facility] Serum or plasma albumin/glob ulin mass ratioOrdered By: Will Nj on 06-06-2023 Albumin/Globulin [Mass ratio] 0.8 {ratio} 0.9-2.4 [facility] Serum or plasma calcium isma urement (mass/volume)Ordered By: Will Nj on 06-06-2023 Calcium [Mass/Vol] 9.0 mg/dL 8.5-10.1 [facility] Serum or plasma creatinine m easurement (mass/volume)Ordered By: Will Nj on 06-06-2023 Creatinine [Mass/Vol] 0.69 mg/dL 0.55-1.02 [facility] Comment on above: The validity of the calculated GFR & GFRAA in patients over 70 years has not been determined. Clinical correlation is essential. Serum or plasma urea nitroge n measurement (mass/volume)Ordered By: Will Nj on 06-06-2023 Urea nitrogen [Mass/Vol] 12 mg/dL 7-18 [facility] Thin prep Papanicolaou smear with manual screeningOrdered By: Will Nj 06-06-2023 Thin prep Papanicolaou smear with manual screening 23 U/L 15-37 [facility] Thin prep Papanicolaou smear with manual screening 5 5-15 [facility] CNPQian 07-10-2022 BREEZY Telephone (UCWSTR) ABBY COULTER ([id number]) 1955 F Date Time Provider Department 07/10/22 NASRIN MOORE [facility] During your visit today, we recorded the following information about you: Nasrin Moore APRN.CNP 07/10/2022 6:37 AM Signed Please notify of negative influenza and covid test. Continue comfort measures for symptoms as you would for a cold. Any worsening symptoms follow up with PCP or ER. BARBARA Kumar 07/10/2022 7:33 AM Signed Left detailed message on a secured voicemail. Reshma Bernstein Allergies As of Date: 07/10/2022 Noted Allergy Reaction ERYTHROMYCIN 12/24/2005 8 - GI Upset ZITHROMAX Z-ANTHONY (AZITHROMYCIN) 12/24/2005 8 - GI Upset Date Reviewed: 07/09/2022 Reviewed by: Reshma Bernstein - Fully Assessed Reason for Visit: Results [95] Prescriptions as of 07/11/2022 - citalopram (CELEXA) 20 mg tablet Take 20 mg by mouth once daily. - gentamicin (GENTAK) 0.3 % (3 mg/gram) ophthalmic ointment Use 1 application in the left eye three times daily. - duloxetine (CYMBALTA) 30 mg ORAL capsule Take 1 capsule by mouth once daily. - paroxetine (PAXIL) 10 mg ORAL tablet Take 1 tablet by mouth once daily. - paroxetine (PAXIL) 20 mg ORAL tablet Take 1 tablet by mouth once daily. Take with 10 mg tablet for a total of 30 mg daily. Problem List As Of Date 07/10/2022 Noted Resolved PANIC DISORDER WITHOUT AGORAPHOBIA [F41.0] HEARING LOSS NOS [H91.90] 05/15/2006 MIXED HYPERLIPIDEMIA [E78.2] 05/15/2006 OVERWEIGHT [E66.9] 05/15/2006 Uterovaginal Prolapse, Incomplete [N81.2] 08/04/2006 Unilat Ing Hernia [K40.90] 09/22/2008 Cough [R05.9] 09/22/2008 Anxiety [F41.9] 08/21/2009 Pain of both shoulder joints [M25.511, M25.512] 06/03/2016 Cervical spinal stenosis [M48.02] 06/05/2016 Encounter Status:Closed by NASRIN MOORE on 07/11/22 [facility] CNOVon 07-09-2022 CNOV Office Visit (UCWSTR) ABBY COULTER ([id number]) 1955 F Date Time Provider Department 07/09/22 7:15 PM MARICRUZ SNYDER During your visit today, we recorded the following information about you: Temperature Pulse Respiration Blood pressure 97.6 degrees 88/minute 16/minute 132/84 Weight 86.6 kg Maricruz Snyder PA-C 07/09/2022 8:20 PM Signed Subjective HPI HPI Abby Coulter is a 67 year old female who presents today for CC of sore throat since Friday. Granddaughter tested postiive for strep today (and she resides with her). 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 Started having body aches/fatigue yesterday. Wanted to make sure she didn't have strep as well, especially d/t her history of rheumatic fever. 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 Unspecified Hearing Loss Mixed Hyperlipidemia OVERWEIGHT Uterovaginal Prolapse, Incomplete Inguinal Hernia Without Mention of Obstruction Or Gangrene, Unilateral Or Unspecified, (Not Specified As Recurrent) Cough Anxiety Pain of Both Shoulder Joints Cervical Spinal Stenosis Family History Problem Relation Age of Onset Stroke Maternal Grandmother COPD Mother other (Colon Polyps [Other]) Mother Social History Tobacco Use Smoking status: Former Years: 20.00 Types: Cigarettes Smokeless tobacco: Never Tobacco comments: Quit in 2000 Substance Use Topics Alcohol use: Yes Comment: Occasionally Drug use: No Review of Systems Constitutional: Positive for malaise/fatigue. Negative for chills and fever. HENT: Positive for ear pain (Left ear pressure), sinus pain and sore throat. Negative for congestion. Respiratory: Negative for cough, sputum production, shortness of breath and wheezing. Cardiovascular: Negative for chest pain. Neurological: Negative for headaches. Objective BP 132/84 Pulse 88 Temp 36.4 ?C (97.6 ?F) Resp 16 Wt 86.6 kg (191 lb) LMP 09/30/2006 SpO2 97% Physical Exam Constitutional: General: She is not in acute distress. Appearance: She is not toxic-appearing. HENT: Head: Normocephalic. Right Ear: Tympanic membrane, ear canal and external ear normal. No drainage. No middle ear effusion. Tympanic membrane is not perforated, erythematous, retracted or bulging. Left Ear: Ear canal normal. No drainage. No middle ear effusion. Tympanic membrane is retracted. Tympanic membrane is not perforated, erythematous or bulging. Nose: Mucosal edema and rhinorrhea present. Rhinorrhea is clear. Right Sinus: No maxillary sinus tenderness or frontal sinus tenderness. Left Sinus: No maxillary sinus tenderness or frontal sinus tenderness. Mouth/Throat: Pharynx: Uvula midline. Posterior oropharyngeal erythema present. No oropharyngeal exudate. Tonsils: No tonsillar abscesses. Eyes: General: Lids are normal. Conjunctiva/sclera: Conjunctivae normal. Cardiovascular: Rate and Rhythm: Normal rate and regular rhythm. Heart sounds: S1 normal and S2 normal. No friction rub. Pulmonary: Effort: Pulmonary effort is normal. Breath sounds: Normal breath sounds. No wheezing, rhonchi or rales. Lymphadenopathy: Head: Right side of head: No submental, submandibular, tonsillar, preauricular, posterior auricular or occipital adenopathy. Left side of head: No submental, submandibular, tonsillar, preauricular, posterior auricular or occipital adenopathy. Cervical: Right cervical: No superficial or posterior cervical adenopathy. Left cervical: No superficial or posterior cervical adenopathy. Neurological: Mental Status: She is alert and oriented to person, place, and time. Psychiatric: Behavior: Behavior is cooperative. ASSESSMENT/PLAN: 1. Viral URI with cough - ICD9: 465.9, ICD10: J06.9 (primary diagnosis) - Discussed viral etiology and rationale for treatment. Covid and flu testing ordered; Results will be released to [facility] in 24-48 hours. Discussed quarantine, social distancing, hand washing/proper hygiene. Rest, fluids, OTC medications discussed. - COVID WITH FLUA+B, ROUTINE 2. Sore throat - ICD9: 462, ICD10: J02.9 - suspect viral - Alere Strep Test negative, no culture pending - Discussed supportive care treatment with fluids, rest and analgesia. - Call back if drooling, increased temperature, symptoms of dehydration and/or still sick in one week - STREP A MOLECULAR (POC) - COVID WITH FLUA+B, ROUTINE 3. Flu-like symptoms - ICD9: 780.99, ICD10: R68.89 See above - COVID WITH FLUA+B, ROUTINE Pt advised to see PCP if symptoms persist or progress. Reviewed red flags with patient and when to seek care sooner. (more content not included)... Normal [facility] STREP A MOLECULAR (POC)on Procedural Control Valid [facility] Strep A (POCT) Negative Negative [facility] Absolute lymphocyte counton 05-15-2022 Lymphocytes Auto (Unsp spec) [#/Vol] 1.56 10*3/uL 0.83-4.51 [facility] Work Phone: Basophil percentageon 2021 Basophils/100 WBC (Bld) 0.7 % 0-1 [facility] Work Phone: Bilirubin [Mass/Vol] 0.40 mg/dL 0.20-1.00 [facility] Work Phone: Comment on above: For patients on eltr ombopag therapy, use of Dimension Mccune TBIL is not recommended. Chloride [Moles/Vol] 108 mmol/L 98-107 [facility] Work Phone: Eosinophils/100 WBC (Bld) 3.9 % 0-5 [facility] Work Phone: Glucose [Mass/Vol] 110 mg/dL 74-106 [facility] Work Phone: [phone] Comment on above: Fasting Glucose resu lt from 100 to 125 mg/dL suggests IMPAIRED HOMEOSTASIS per A.D.A. criteria. Neutrophils (Bld) [#/Vol] 4.4 10*3/uL 2.0-7.7 [facility] Work Phone: [phone] Neutrophils/100 WBC (Bld) 62.9 % 47-70 [facility] Work Phone: Potassium [Moles/Vol] 3.6 mmol/L 3.5-5.1 [facility] Work Phone: Protein [Mass/Vol] 8.4 g/dL 6.4-8.2 [facility] Work Phone: Sodium [Moles/Vol] 140 mmol/L 136-145 [facility] Work Phone: WBC (Bld) [#/Vol] 7.0 10*3/uL 4.4-11.0 [facility] Work Phone: Blood erythrocytes count (nu mber/volume)on 05-15-2022 RBC (Bld) [#/Vol] 4.79 10*6/uL 4.2-5.4 [facility] Work Phone: Blood hemoglobin measurement (mass/volume)on 05-15-2022 Hemoglobin (Bld) [Mass/Vol] 14.2 g/dL 12.0-15.0 [facility] Work Phone: Blood lymphocytes/100 leukoc yteson 05-15-2022 Lymphocytes/100 WBC (Bld) 22.4 % 19-41 [facility] Work Phone: Blood monocytes/100 leukocyt eson 05-15-2022 Monocytes/100 WBC (Bld) 9.8 % 0-10 [facility] Work Phone: Blood platelet mean volumeon 05-15-2022 Platelet mean volume (Bld) [Entitic vol] 11.2 fL 6.2-12.0 [facility] Work Phone: Determination of erythrocyte mean corpuscular volume (MCV)on 05-15-2022 MCV (RBC) [Entitic vol] 89.4 fL 81-99 [facility] Work Phone: Hematocrit Auto (Bld) [Volum e fraction]on 05-15-2022 Hematocrit (Bld) [Volume fraction] 42.8 % 37-47 [facility] Work Phone: Laboratory - Chemistry and C hemistry - challengeon 05-15-2022 ALP [Catalytic activity/Vol] 74 U/L 45-117 [facility] Work Phone: ALT [Catalytic activity/Vol] 30 U/L 13-56 [facility] Work Phone: CO2 [Moles/Vol] 24.0 mmol/L 21.0-32.0 [facility] Work Phone: Globulin (S) [Mass/Vol] 4.4 g/dL 2.2-4.2 [facility] Work Phone: Urea nitrogen/Creatinine [Mass ratio] 19.4 mg/mg 10-20 [facility] Work Phone: Laboratory - Hematology and Cell countson 05-15-2022 Erythrocyte distribution width (RBC) [Entitic vol] 42.6 fL 35.1-43.9 [facility] Work Phone: Erythrocyte distribution width (RBC) [Ratio] 13.0 % 11.6-14.6 [facility] Work Phone: Immature granulocytes/100 WBC (Bld) 0.300 % 0.0-0.9 [facility] Work Phone: Comment on above: IG% - Immature Granu locytes (promyelocytes, myelocytes and metamyelocytes) > 1% indicates that a LEFT SHIFT is Present. MCH (RBC) [Entitic mass] 29.6 pg 27.0-32.0 [facility] Work Phone: Nucleated RBC/100 WBC (Bld) [Ratio] 0 % 0-5 [facility] Work Phone: MCHC Auto (RBC) [Mass/Vol]on 05-15-2022 MCHC (RBC) [Mass/Vol] 33.2 g/dL 32-36 [facility] Work [facility]: No Panel Informationon 05-15 Estimated GFR (MDRD) Amer 113 mL/min >60 [facility] Work Phone: Comment on above: GFR Calc Estimated GFR (MDRD) Non-Af Amer 93 mL/min >60 [facility] Work Phone: Comment on above: Non- GFR Calc Thyroid Stimulating Hormone (TSH) 1.60 uIU/mL 0.358-3.74 [facility] Work Phone: Vitamin D 25-Hydroxy 23.6 ng/mL [facility] Work Phone: Comment on above: Vitamin D 25(OH) Sta tus Range Deficiency <20 ng/mL (50nmol/L) Insufficiency 20 - 30 ng/mL (50 - 75 nmol/L) Sufficiency 30 - 100 ng/mL (75 - 250 nmol/L) Toxicity >100 ng/mL (>250 nmol/L) Platelets bldon 05-15-2022 Platelets (Bld) [#/Vol] 297 10*3/uL 150-450 [facility] Work Phone: Serum or plasma albumin isma urement (mass/volume)on 05-15-2022 Albumin [Mass/Vol] 4.0 g/dL 3.2-5.0 [facility] Work Phone: Serum or plasma albumin/glob ulin mass ratioon 05-15-2022 Albumin/Globulin [Mass ratio] 0.9 {ratio} 0.9-2.4 [facility] Work Phone: Serum or plasma calcium isma urement (mass/volume)on 05-15-2022 Calcium [Mass/Vol] 9.3 mg/dL 8.5-10.1 [facility] Work Phone: Serum or plasma creatinine m easurement (mass/volume)on 05-15-2022 Creatinine [Mass/Vol] 0.67 mg/dL 0.55-1.02 [facility] Work Phone: Comment on above: The validity of the calculated GFR & GFRAA in patients over 70 years has not been determined. Clinical correlation is essential. Serum or plasma urea nitroge n measurement (mass/volume)on 05-15-2022 Urea nitrogen [Mass/Vol] 13 mg/dL 7-18 [facility] Work Phone: Thin prep Papanicolaou smear with manual screeningon 05-15-2022 Thin prep Papanicolaou smear with manual screening 21 U/L 15-37 [facility] Work Phone: Thin prep Papanicolaou smear with manual screening 8 5-15 [facility] Work Phone: Vital Signs Date Time Vital Sign Value Performing Clinician Facility 02-14-2025 16:38-0400 Body temperature 97.8 [degF] Dr. Will Nj MD Work Phone: [facility] 02-14-2025 16:38-0400 Diastolic blood pressure 84 mm[Hg] Dr. Will Nj MD Work Phone: [facility] 02-14-2025 16:38-0400 Heart rate 87 /min Dr. Will Nj MD Work Phone: [facility] 02-14-2025 16:38-0400 Respiratory rate 16 /min Dr. Will Nj MD Work Phone: [facility] 02-14-2025 16:38-0400 SaO2% (BldA) [Mass fraction] 98 % Dr. Will Nj MD Work Phone: [facility] 02-14-2025 16:38-0400 Systolic blood pressure 140 mm[Hg] Dr. Will Nj MD Work Phone: [facility] 02-14-2025 15:53-0400 Body height 165.[address] Will Nj MD Work Phone: [facility] 02-14-2025 15:53-0400 Body mass index (BMI) [Ratio] 33.3 kg/m2 Dr. Will Nj MD Work Phone: [facility] 02-14-2025 15:53-0400 Body weight 90.[address] Will Nj MD Work Phone: [facility] 04-03-2023 16:12-0400 Body height 165.[address] Will Nj Work Phone: [facility] 04-03-2023 16:12-0400 Body mass index (BMI) [Ratio] 31.9 kg/m2 Dr. Will Nj Work Phone: [facility] 04-03-2023 16:12-0400 Body temperature 98.6 [degF] Dr. Will Nj Work Phone: [facility] 04-03-2023 16:12-0400 Body weight 87.[address] Will Nj Work Phone: [facility] 04-03-2023 16:12-0400 Diastolic blood pressure 84 mm[Hg] Dr. Will Nj Work Phone: [facility] 04-03-2023 16:12-0400 Heart rate 87 /min Dr. Will Nj Work Phone: [facility] 04-03-2023 16:12-0400 Respiratory rate 16 /min Dr. Will Nj Work Phone: [facility] 04-03-2023 16:12-0400 SaO2% (BldA) [Mass fraction] 96 % Dr. Will Nj Work Phone: [facility] 04-03-2023 16:12-0400 Systolic blood pressure 147 mm[Hg] Dr. Will Nj Work Phone: [facility] 07-09-2022 19:18-0500 Body temperature 97.59 [degF] Maricruz Denbow PA-C Work Phone: [facility] 07-09-2022 19:18-0500 Body weight 86.64 kg Maricruz Denbow PA-C Work Phone: [facility] 07-09-2022 19:18-0500 Diastolic blood pressure 84 mm[Hg] Maricruz Denbow PA-C Work Phone: [facility] 07-09-2022 19:18-0500 Heart rate 88 /min Maricruz Denbow PA-C Work Phone: [facility] 07-09-2022 19:18-0500 Respiratory rate 16 /min Maricruz Gloverflower PA-C Work Phone: [facility] 07-09-2022 19:18-0500 SaO2% (BldA) [Mass fraction] 97 % Maricruz Snyder PA-C Work Phone: [facility] 07-09-2022 19:18-0500 Systolic blood pressure 132 mm[Hg] Maricruz Gloverflower PA-C Work Phone: [facility] Encounters Encounter Date Encounter Type Care Provider Facility Start: 02-14-2025 End: 02-14-2025 Emergency department patient visit Dr. Will Nj MD Work Phone: -Emergency Department Work Phone: Start: 06-08-2024 End: 06-08-2024 ambulatory [facility] Facility:[facility] Start: 06-06-2023 End: 06-06-[address] Will Nj Work Phone: [facility] Work Phone: Start: 06-06-2023 End: 06-06-[address] Will Nj Work Phone: [facility]-Laboratory, Phy Office 3rd Flr Start: 04-03-2023 End: 04-03-[address] Will Nj Work Phone: [facility] Work Phone: Start: 07-10-2022 Telephone encounter Nasrin Moore APRN.CNP Work Phone: [facility] Comment on above: Results Start: 07-09-2022 End: 07-09-2022 ambulatory [facility] Facility:[facility] Start: 07-09-2022 End: 07-09-2022 Patient encounter procedure Maricruz TIM-C Work Phone: [facility] Comment on above: Viral URI with cough (Primary Dx); Sore throat; Flu-like symptoms Start: 05-15-2022 End: 05-15-2022 ambulatory [facility] Work Phone: Start: 05-15-2022 End: 05-15-2022 Patient encounter procedure [facility]-Laboratory, Phy Office 3rd Flr Procedures Date Procedure Procedure Detail Performing Clinician Start: 07-09-2022 DENISE Tao MOLECULAR (POC) Raphael Colón APRN.CNP Work Phone: Start: 08-21-2009 Mammography Maricruz Gallegos PA-C Work Phone: Plan of Treatment Date Care Activity Detail Author Start: 02-14-2025 [facility] Start: 03-28-2022 Influenza vaccination INFLUENZA (#1) [facility] Start: 07-28-2021 ADVANCE DIRECTIVE DISCUSSION ADVANCE DIRECTIVE DISCUSSION [facility] Start: 07-28-2021 DEPRESSION ASSESSMENT DEPRESSION ASS ESSMENT [facility] Start: 05-04-2021 COVID-19 VACCINE (2 - Moderna series) COVID-19 VACCINE (2 - Moderna series) [facility] Start: 2021 BONE DENSITY BONE DENSITY [facility] Start: 2021 PNEUMOCOCCAL: 65+ (1 - PCV) PNEUMOCOCCAL: 65+ (1 - PCV) [facility] Start: 09-22-2011 DIABETES SCREEN DIABETES SCREEN [facility] Start: 08-21-2010 Mammography MAMMOGRAM [facility] Start: 2006 SHINGRIX VACCINE (1 of 2) SHINGRIX VACCINE (1 of 2) [facility] Start: 2001 COLOGUARD (FIT-DNA) COLOGUARD (FIT-D NA) [facility] Start: 2001 Colonoscopy COLONOSCOPY [facility] Start: 2001 COLORECTAL CANCER SCREENING COLORECTAL CANCER SCREENING [facility] Start: [address] COLONOGRAPHY [facility] Start: 2001 FECAL OCCULT BLOOD FECAL OCCULT BLOO D [facility] Start: 2001 LIPID SCREEN LIPID SCREEN [facility] Start: 2001 SIGMOIDOSCOPY SIGMOIDOSCOPY [facility] Start: 1975 Urine microalbumin profile DTAP,TDAP,TD (1 - Tdap) [facility] Start: 1974 HEPATITIS C SCREENING HEPATITIS C [facility] Influenza virus A an d B RNA and SARS-CoV-2 (COVID-19) N gene panel - Respiratory specimen by SURESH with probe detection COVID WITH FLUA+B, ROUTINE Microbiology Routine Sore throat Flu-like symptoms Viral URI with cough Ordered: 07/09/2022 [facility] Work Phone: Comment on above: Ordered: 07/09/2022 Patient Education ED Muscle Stra in, Extremity ED RICE [facility] Work Phone: Payers Date Payer Category Payer Self-pay [id number] 2024 Unknown [id number] 2021 Medicare [id number] 2021 Medicare MEDICARE MEDICAR E A AND B [id number] 2021-Present [phone] [address] [address] [place] [address] Medicare [id number] Unknown [id number] Unknown [id number] Unknown [id number] Social History Date Type Detail Facility Tobacco smoking stat [facility] Unknown if ever smoked [facility] Work Phone: Start: 1955 Sex Assigned At Female [facility] Start: 02-28-2018 [facility] History of tobacco use Current smoker [facility] History of tobacco use Cigarette Smoker [facility] Start: 02-28-2018 Tobacco use and exposure Smokeless tobacco non-user [facility] Start: 03-13-2022 Alcohol intake Current drinke r of alcohol (finding) [facility] Start: 1955 Sex Assigned At Not on file [facility] Start: 02-14-2025 Tobacco smoking stat us [facility] Never smoked tobacco (finding) [facility] Clinical Notes 07-09-2022 to 02-14-2025 Note Date & Type Note Facility 02-14-2025 Discharge summary [facility] 02-14-2025 Discharge summary Note Date/Time February 14, 2025 4:55pm [facility] Medical Records Department [address] [place] [address] Emergency Department Summary 02/14/25 MR#: [id number] Acct: [id number] Name: ABBY COULTER Rep #:[id number] : [id number] 69 From: Ever [place] DO PCP: Dr. Will Nj MD Status:REG E R Location: ED HPI History of Present Illness Chief Complaint: Lower Extremity Injury Narrative Narrative: Chief complaint and HPI: Left posterior thigh pain. 69-year-old female with past medical history of depression and anxiety presents for evaluation of left posterior thigh pain. Patient states prior to arrival she accidentally slipped on a dog bone that was under a blanket causing her to fall with her left lower extremity out in front of her. Patient states she developed pain in her left posterior thigh that makes it difficult to ambulate. Mild swelling in the area. Denies any numbness or tingling. Did not hit her head. No LOC. Denies pain elsewhere. Denies any pain in the hip joint or knee. Review of systems: See HPI Medications: As listed on the chart Allergies: As listed on the chart PFSH: Per chart Vital signs: As listed on the chart. Reviewed. Physical exam: Gen: A&O x3, NAD Head: Normocephalic, atraumatic Eyes: No sclera icterus, conjunctiva clear, PERRL ENT: Moist mucous membranes, atraumatic Neck: Full range of motion CV: RRR, no murmurs, no peripheral edema Resp: Lungs CTA BL, no w/r/c GI: Abd soft, non-distended, non-tender, no r/r/g Musc: Full range of motion of all of the extremities including the left lower extremity, no deformity, she has mild swelling and pain to palpation of the lefthamstring muscle-muscle is intact with good flexion and extension of the hip andknee, no ecchymosis/crepitus/erythema/warmth, no tenderness of pelvis/hip joint/knee, no joint swelling, compartments soft, femoral/DP PT pulses +2 bilaterally, strength is 5 out of 5, good capillary, sensation intact Skin: Warm, dry Neuro: Alert, oriented, grossly intact Psych: Cooperative, appropriate mood and affect [facility] History (Updated 02/14/25 @ 16:[address] Ever Lo DO) Anxiety Depression Home Medications ?Medication ?Instructions ?Recorded ?Last Taken ?Type acetaminophen 325 mg capsule 325 mg PO ONCE PRN Unknown History (Tylenol) citalopram 10 mg tablet (Celexa) 10 mg PO DAILY Unknown History ibuprofen 200 mg capsule 200 mg PO Q6H PRN 04/03/23 U nknown History cyclobenzaprine 5 mg tablet 5 mg PO TID PRN muscle spa sm 3 02/14/25 Unknown Rx days #9 tabs Allergy/AdvReac Type Severity Reaction Status Date / Time No Known Allergies Allergy Verified 02/14/25 15:54 Surgical History (Updated 02/14/25 @ 16:00 by Lynda Chavez) H/O rhinoplasty Social History Smoking Status: Never smoker EXAM Physical Exam Const Vital Signs: 02/14/25 15:53 02/14/25 16:38 Temperature 97.8 F 97.8 F Temperature Source Oral Pulse Rate 87 87 Respiratory Rate 16 16 Blood Pressure 140/84 H 140/84 H Blood Pressure Mean 102 102 Pulse Ox 98 98 Oxygen Delivery Method Room Air MDM MDM MDM Narrative Medical decision making narrative: 69-year-old female with past medical history of depression and anxiety presents for evaluation of left posterior thigh pain. Patient states prior to arrival she accidentally slipped on a dog bone that was under a blanket causing her to fall with her left lower extremity out in front of her. Patient states she developed pain in her left posterior thigh that makes it difficult to ambulate. Denies injury elsewhere. Did not hit her head. No LOC. See physical exam findings. Patient has mild swelling and tenderness in the left hamstring muscle. Muscles intact with good flexion and extension of the hip and knee. She has no deformity. She is neurovascularly intact. She has no pain or swelling in the joints. She has full range of motion of the lower extremity with intact strength. Suspect pain is secondary to a hamstring injury. I do not think any x-rays are needed at this time. Patient in agreement. Patient was educated on RICE therapy. Will apply Michael wrap to the left thigh for compression. Merrick given for pain as patient did not drive. Will prescribe crutches for ambulation as needed. Patient tolerated ambulating with crutches well. Tylenol Motrin as needed for pain. Will give muscle relaxers for muscle spasm as needed. Follow-up with primary care physician. Return precautions explained. She confirmed understand plan. Patient stable to discharge home. Impression: 1. Left hamstring strain 2. Mechanical fall Discharge Plan Triage Chief Complaint: Lower Extremity Injury ED Provider: Ever Lo Dx/Rx/DC Orders Clinical Impression: Hamstring strain Instructions: ED Muscle Strain, Extremity, ED RICE Prescriptions: New cyclobenzaprine 5 mg tablet 5 mg PO TID PRN (Reason: muscle spasm) 3 Days Qty: 9 0RF No Action citalopram [Celexa] 10 mg tablet 10 mg PO DAILY acetaminophen [Tylenol] 325 mg capsule 325 mg PO ONCE PRN ibuprofen 200 mg capsule 200 mg PO Q6H PRN Primary Care Provider: Will Nj Chi Referrals: Will Nj Chi, MD [Primary Care Provider] - 3-5 Days Activity Restrictions/Additional Instructions: Follow-up with primary care physician. Crutches as needed for ambulation. Tylenol and Motrin for pain. Muscle relaxers as needed for muscle spasm. Muscle relaxers can increase falls, confusion, fatigue, lightheadedness. Do notdrive or operate heavy machinery while taking these. Print Language: Romanian Disposition Disposition: Home, Self Care What to do if you have Problems For any increased pain, shortness of breath, bleeding, nausea or vomiting, chestpain, or any unexpected problems, contact your Primary Care Provider. Call [facility] ([phone]) or report to the closest Emergency Room. Call 911 if necessary. 02/14/25 1655 <Electronically signed by Ever Lo DO> Cosigner Signature (if applicable): CC: Dr. Will Nj MD ~ Signed [facility] Work Phone: [phone] Miscellaneous Notes* Telephone Encounter - Reshma Bernstein - 07/10/2022 7:33 AM EST Left detailed message on a secured voicemail. Reshma Bernstein * Telephone Encounter - Nasrin Moore APRN.CNP - 07/10/2022 6:36 AM EST Please notify of negative influenza and covid test. Continue comfort measures for symptoms as you would for a cold. Any worsening symptoms follow up with PCP or ER. Nasrin Moore APRN.CNP documented [facility] Influenza virus A and B RNA and SARS-CoV-2 (COVID-19) N gene panel SURESH+probe (Resp)COVID 19 RESULT: SARS-CoV-2 (Agent of COVID-19) Not Detected by RT-PCR or equivalent method. sanaz [id number]_Iggmt [employer] (EDIL)_EUA This test was developed and its performance characteristics determined by [facility] [place]. This test has been authorized by FDA under an Emergency Use Authorization (EUA). This test has been validated in accordance with the FDA's Guidance Document Policy for DiagnosticsTesting in Laboratories Certified to Perform High Complexity Testing under CLIA prior to Emergency use Authorization for Coronavirus Disease 2019 during the Public Health Emergency issued on September 25, 2019. Test performed by [facility], David Guerra [facility] [place], [address] [place] [address]. INFLUENZA A PCR: Negative for Influenza A by RT-PCR INFLUENZA B PCR: Negative for Influenza B by RT-PCRGreen Cross HospitalComment on above: Performed By: #### [id number] #### [facility] CLIA [id number] [facility] [place] [id number] [id number] NoteHNO ID: [id number] Author: Maricruz Snyder PA-C Service: ? Author Type: Physician Health Policy Nurse Type: Progress Notes Filed: 07/09/2022 8:20 PM Note Text: Subjective HPI HPI Abby Coulter is a 67 year old female who presents today for CC of sore throat since Friday. Granddaughter tested postiive for strep today (and she resides with her). 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 Started having body aches/fatigue yesterday. Wanted to make sure she didn't have strep as well, especially d/t her history of rheumatic fever. 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 Unspecified Hearing Loss Mixed Hyperlipidemia OVERWEIGHT Uterovaginal Prolapse, Incomplete Inguinal Hernia Without Mention of Obstruction Or Gangrene, Unilateral Or Unspecified, (Not Specified As Recurrent) Cough Anxiety Pain of Both Shoulder Joints Cervical Spinal Stenosis Family History Problem Relation Age of Onset Stroke Maternal Grandmother COPD Mother other (Colon Polyps [Other]) Mother Social History Tobacco Use Smoking status: Former Years: 20.00 Types: Cigarettes Smokeless tobacco: Never Tobacco comments: Quit in 2000 Substance Use Topics Alcohol use: Yes Comment: Occasionally Drug use: No Review of Systems Constitutional: Positive for malaise/fatigue. Negative for chills and fever. HENT: Positive for ear pain (Left ear pressure), sinus pain and sore throat. Negative for congestion. Respiratory: Negative for cough, sputum production, shortness of breath and wheezing. Cardiovascular: Negative for chest pain. Neurological: Negative for headaches. Objective BP 132/84 Pulse 88 Temp 36.4 ?C (97.6 ?F) Resp 16 Wt 86.6 kg (191 lb) LMP 09/30/2006 SpO2 97% Physical Exam Constitutional: General: She is not in acute distress. Appearance: She is not toxic-appearing. HENT: Head: Normocephalic. Right Ear: Tympanic membrane, ear canal and external ear normal. No drainage. No middle ear effusion. Tympanic membrane is not perforated, erythematous, retracted or bulging. Left Ear: Ear canal normal. No drainage. No middle ear effusion. Tympanic membrane is retracted. Tympanic membrane is not perforated, erythematous or bulging. Nose: Mucosal edema and rhinorrhea present. Rhinorrhea is clear. Right Sinus: No maxillary sinus tenderness or frontal sinus tenderness. Left Sinus: No maxillary sinus tenderness or frontal sinus tenderness. Mouth/Throat: Pharynx: Uvula midline. Posterior oropharyngeal erythema present. No oropharyngeal exudate. Tonsils: No tonsillar abscesses. Eyes: General: Lids are normal. Conjunctiva/sclera: Conjunctivae normal. Cardiovascular: Rate and Rhythm: Normal rate and regular rhythm. Heart sounds: S1 normal and S2 normal. No friction rub. Pulmonary: Effort: Pulmonary effort is normal. Breath sounds: Normal breath sounds. No wheezing, rhonchi or rales. Lymphadenopathy: Head: Right side of head: No submental, submandibular, tonsillar, preauricular, posterior auricular or occipital adenopathy. Left side of head: No submental, submandibular, tonsillar, preauricular, posterior auricular or occipital adenopathy. Cervical: Right cervical: No superficial or posterior cervical adenopathy. Left cervical: No superficial or posterior cervical adenopathy. Neurological: Mental Status: She is alert and oriented to person, place, and time. Psychiatric: Behavior: Behavior is cooperative. ASSESSMENT/PLAN: 1. Viral URI with cough - ICD9: 465.9, ICD10: J06.9 (primary diagnosis) - Discussed viral etiology and rationale for treatment. Covid and flu testing ordered; Results will be released to [facility] in 24-48 hours. Discussed quarantine, social distancing, hand washing/proper hygiene. Rest, fluids, OTC medications discussed. - COVID WITH FLUA+B, ROUTINE 2. Sore throat - ICD9: 462, ICD10: J02.9 - suspect viral - Alere Strep Test negative, no culture pending - Discussed supportive care treatment with fluids, rest and analgesia. - Call back if drooling, increased temperature, symptoms of dehydration and/or still sick in one week - STREP A MOLECULAR (POC) - COVID WITH FLUA+B, ROUTINE 3. Flu-like symptoms - ICD9: 780.99, ICD10: R68.89 See above - COVID WITH FLUA+B, ROUTINE Pt advised to see PCP if symptoms persist or progress. Reviewed red flags with patient and when to seek care sooner. The patient indicates understanding of these issues and agrees with the plan. [facility]12-13-20[facility] Instructions* Patient Instructions* Maricruz Snyder PA-C - 07/09/2022 7:42 PM EST [facility] PATIENT INFO PHARYNGITIS OVERVIEW A sore throat (pharyngitis) is a common problem, and usually is caused by a viral or bacterial infection. Sore throat usually resolves on its own without complications in adults, although it is important to know when to seek medical attention. Viruses can cause a sore throat and other upper respiratory infections, such as the common cold. Sore throat caused by a virus is not treated with antibiotics, but instead may be treated with rest, pain medication, and other therapies aimed at relieving symptoms. Strep throat is a particular kind of pharyngitis that is caused by a bacterium known as group A streptococcus (GAS). Strep throat is treated with a course of antibiotics. SORE THROAT SYMPTOMS Viral pharyngitis -- Most people with a sore throat have a virus. The most common viruses are thosethat cause upper respiratory infections, such as the common cold. Symptoms of a viral infection can include: A runny or congested nose Irritation or redness of the eyes Cough, hoarseness, or soreness in the roof of the mouth Some viruses cause a fever and can make you feel quite ill. Strep throat -- Approximately 10 percent of adults with a sore throat have strep throat. Signs and symptoms of strep throat include the following: Pain in the throat Fever (temperature greater than 100.4 F or 38 C) Enlarged lymph glands in the neck White patches of pus on the side or back of the throat No cough, runny nose, or irritation/redness of the eyes Other infections -- Many other less common but more serious infections can cause a sore throat, including mononucleosis (mono), influenza (the flu), N. gonococcus (gonorrhea), human immunodeficiency virus (HIV), and others. When to seek urgent help -- See your doctor or nurse immediately if you have a sore throat along with any of the following: Difficulty breathing Skin rash Drooling because you cannot swallow Swelling of the neck or tongue Stiff neck or difficulty opening the mouth SORE THROAT DIAGNOSIS Most people with a sore throat get better without treatment. There is no specific treatment for a sore throat caused by usual cold viruses. Is it strep or not? -- A combination of symptoms (fever, enlarged glands in the neck, white patcheson your tonsils, and no cough) can help in determining if you have strep. If you have two or more symptoms, a rapid test or throat culture may be done. People with fewer than two symptoms usually do not need testing or treatment for strep throat. Rapid test -- The rapid test determines if there are streptococcus bacteria on a throat swab. The test can be done in a clinician's office and the results are available within a few minutes. The testis accurate in most cases, although a small percentage of tests are falsely negative (the bacteria are present but the test is negative). Throat culture -- A throat culture involves swabbing the throat, sending the swab to a laboratory, and waiting 24 to 48 hours for the results. Throat cultures are slightly more accurate than the rapid test. TREATMENT OF SORE THROAT Sore throat treatment -- Antibiotics do not help throat pain caused by a virus and are not recommended. Sore throat caused by viral infections usually lasts four to five days. During this time, treatments to reduce pain may be helpful. Several therapies can help to relieve throat pain. Pain medication -- You can treat your throat pain with a mild pain reliever such as acetaminophen (Tylenol ) or a non-steroidal anti-inflammatory agent such as ibuprofen or naproxen (Motrin or Aleve ). Oral rinses -- Salt-water gargles are an old stand-by for throat pain. It is not clear that salt water works to relieve pain, but it is unlikely to be harmful. Most recipes suggest 1/4 to 1/2 teaspoon of salt per one cup (8 ounces) of warm water. Sprays -- Sprays containing topical anesthetics (eg, benzocaine, phenol) are available to treat sore throat. However, such sprays are no more effective than sucking on hard candy. Lozenges -- A variety of lozenges (cough drops) are available to treat throat pain or relieve dryness. However, it is not clear that lozenges work any better than other forms of hard candy, which aregenerally less expensive. Other treatments -- Other treatments that may help with throat pain include sipping warm beverages (eg, honey or lemon tea, chicken soup), cold beverages, or eating cold or frozen desserts (eg, ice cream, popsicles). Alternative therapies -- Health food stores, vitamin outlets, and Internet Web sites offer alternative treatments for relief of sore throat pain. We do not recommend these type of treatments due to the risks of contamination with pesticides/herbicides, inaccurate labeling and dosing information, and a lack of studies showing that these treatments are safe and effective. Strep throat -- Although strep throat typically resolves on its own within two to five days, treatment with antibiotics is recommended for adults whose rapid test or throat culture is positive for strep throat. Penicillin, or an antibiotic related to penicillin, is the treatment of choice for strep throat. Itis usually given in pill or liquid form two to four times per day for 10 days. A one time injectionof penicillin is also available. People who are allergic to penicillin are given an alternate antibiotic. It is important to finish the entire course of treatment to completely eliminate the infection. If symptoms do not begin to improve or worsen by three days of antibiotic treatment, you should seeyour doctor or nurse again. Return to work/school -- If you have been diagnosed with strep throat, stay home from work or school until you have completed 24 hours of antibiotics. Within 24 hours of beginning antibiotic treatment, you will feel better and will be less contagious [1]. If you have a sore throat (not diagnosed as strep), you may participate in your usual activities assoon as you feel well. SORE THROAT PREVENTION Hand washing is an essential and highly effective way to prevent the spread of infection. Wet your hands with water and plain soap, and rub them together for 15 to 30 seconds. Pay special attention to the fingernails, between the fingers, and the wrists. Rinse your hands thoroughly, and dry them with a clean towel. Alcohol-based hand rubs are a good alternative for disinfecting hands if a sink is not available. Hand rubs should be spread over the entire surface of hands, fingers, and wrists until dry, and may be used several times. These rubs can be used repeatedly without skin irritation or loss of effectiveness. Hand rubs are available as a liquid or wipe in small, portable sizes that are easy to carry in a pocket or handbag. When a sink is available, visibly soiled hands should be washed with soap and water. Wash your hands after coughing, blowing the nose, or sneezing. While it is not always possible to avoid being near a person who is sick, avoiding touching your eyes, nose, or mouth to prevent the spread of infection. In addition, tissues should be used to cover the mouth when sneezing or coughing. These used tissues should be disposed of promptly. Sneezing/coughing into your sleeve (at the inner elbow) is anotherway to contain sprays of saliva and secretions and will not contaminate your hand documented in this [facility] [place] History of Present illness Narrative* Maricruz Snyder PA-C - 07/09/2022 7:29 PM EST Subjective HPI HPI Abby Coulter is a 67 year old female who presents today for CC of sore throat since Friday. Granddaughter tested postiive for strep today (and she resides with her). 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 Started having body aches/fatigueyesterday. Wanted to make sure she didn't have strep as well, especially d/t her history of rheumatic fever. BP 132/84 Pulse 88 Temp 36.4 C (97.6 F) Resp 16 Wt 86.6 kg (191 lb) LMP 09/30/2006 [id number]% ALLERGIES Allergen Reactions Erythromycin GI Upset Zithromax Z-Anthony [Az* GI Upset ACTIVE PROBLEM LIST Panic Disorder Without Agoraphobia Unspecified Hearing Loss Mixed Hyperlipidemia OVERWEIGHT Uterovaginal Prolapse, Incomplete Inguinal Hernia Without Mention of Obstruction Or Gangrene, Unilateral Or Unspecified, (Not Specified As Recurrent) Cough Anxiety Pain of Both Shoulder Joints Cervical Spinal Stenosis Family History Problem Relation Age of Onset Stroke Maternal Grandmother COPD Mother other (Colon Polyps [Other]) Mother Social History Tobacco Use Smoking status: Former Years: 20.00 Types: Cigarettes Smokeless tobacco: Never Tobacco comments: Quit in 2000 Substance Use Topics Alcohol use: Yes Comment: Occasionally Drug use: No Review of Systems Constitutional: Positive for malaise/fatigue. Negative for chills and fever. HENT: Positive for ear pain (Left ear pressure), sinus pain and sore throat. Negative for congestion. Respiratory: Negative for cough, sputum production, shortness of breath and wheezing. Cardiovascular: Negative for chest pain. Neurological: Negative for headaches. Objective BP 132/84 Pulse 88 Temp 36.4 C (97.6 F) Resp 16 Wt 86.6 kg (191 lb) LMP 09/30/2006 [id number]% Physical Exam Constitutional: General: She is not in acute distress. Appearance: She is not toxic-appearing. HENT: Head: Normocephalic. Right Ear: Tympanic membrane, ear canal and external ear normal. No drainage. No middle ear effusion. Tympanic membrane is not perforated, erythematous, retracted or bulging. Left Ear: Ear canal normal. No drainage. No middle ear effusion. Tympanic membrane is retracted. Tympanic membrane is not perforated, erythematous or bulging. Nose: Mucosal edema and rhinorrhea present. Rhinorrhea is clear. Right Sinus: No maxillary sinus tenderness or frontal sinus tenderness. Left Sinus: No maxillary sinus tenderness or frontal sinus tenderness. Mouth/Throat: Pharynx: Uvula midline. Posterior oropharyngeal erythema present. No oropharyngeal exudate. Tonsils: No tonsillar abscesses. Eyes: General: Lids are normal. Conjunctiva/sclera: Conjunctivae normal. Cardiovascular: Rate and Rhythm: Normal rate and regular rhythm. Heart sounds: S1 normal and S2 normal. No friction rub. Pulmonary: Effort: Pulmonary effort is normal. Breath sounds: Normal breath sounds. No wheezing, rhonchi or rales. Lymphadenopathy: Head: Right side of head: No submental, submandibular, tonsillar, preauricular, posterior auricular or occipital adenopathy. Left side of head: No submental, submandibular, tonsillar, preauricular, posterior auricular or occipital adenopathy. Cervical: Right cervical: No superficial or posterior cervical adenopathy. Left cervical: No superficial or posterior cervical adenopathy. Neurological: Mental Status: She is alert and oriented to person, place, and time. Psychiatric: Behavior: Behavior is cooperative. ASSESSMENT/PLAN: 1. Viral URI with cough - ICD9: 465.9, ICD10: J06.9 (primary diagnosis) - Discussed viral etiology and rationale for treatment. Covid and flu testing ordered; Results will be released to [facility] in 24-48 hours. Discussed quarantine, social distancing, hand washing/proper hygiene. Rest, fluids, OTC medications discussed. - COVID WITH FLUA+B, ROUTINE 2. Sore throat - ICD9: 462, ICD10: J02.9 - suspect viral - Alere Strep Test negative, no culture pending - Discussed supportive care treatment with fluids, rest and analgesia. - Call back if drooling, increased temperature, symptoms of dehydration and/or still sick in one week - STREP A MOLECULAR (POC) - COVID WITH FLUA+B, ROUTINE 3. Flu-like symptoms - ICD9: 780.99, ICD10: R68.89 See above - COVID WITH FLUA+B, ROUTINE Pt advised to see PCP if symptoms persist or progress. Reviewed red flags with patient and when to seek care sooner. The patient indicates understanding of these issues and agrees with the plan. Maricruz Snyder PA-C documented [facility] this [facility] noteNo assessment information availableWACMC Healthcare [facility] Work Phone: Evaluation note* Diagnosis Viral URI with cough- Primary Acute upper respiratory infections of unspecified site Sore throat Acute pharyngitis Flu-like symptoms Other general symptoms documented in this encounter [facility] note* Diagnosis Onset Date Resolution Status Dental abscess acute [facility] Work Phone: Hospital Discharge instructionsAdditional Instructions Follow-up with primary care physician. Crutches as needed for ambulation. Tylenol and Motrin for pain. Muscle relaxers as needed for muscle spasm. Muscle relaxers can increase falls, confusion, fatigue, lightheadedness. Do not drive or operate heavy machinery while taking these.[facility] Work Phone: Reason for referral (narrative)No reason for referral information availableWACMC Healthcare System [facility] Work Phone: Summary Purpose Family History No Family History Records FoundNo Family History Records Found Advance Directives No Advanced Directives Records Found Advance Directive Response Recorded Date/ Time Do you have a Healthcare Power of Automobile Body Worker? No February 14, 2025 3:58pm Chief Complaint and Reason for Visit Chief Complaint ABSCESS TOOTH Reason for Visit Dental abscess Chief Complaint Admit Date SLIPPED February 14, 2025 3:51 pm Additional Source Comments Goals (unrecognized section and content) Goals may be documented in a n alternate sectionGoals may be documented in an alternate sectionGoals may be documented in an alternate section Source Comments (unrecognize d section and content) In the event this informatio n is protected by the Federal Confidentiality of Alcohol and Drug Abuse Patient Records regulations: The Federal rules restrict any use of the information to criminally investigate or prosecute any alcohol or drug abuse patient.[facility] the event this information is protected by the Federal Confidentiality of Alcohol and Drug Abuse Patient Records regulations: The Federal rules restrict any use of the information to criminally investigate or prosecute any alcohol or drug abuse patient.[facility] Reason for Visit (unrecogniz ed section and content) Reason Comments Sore Throat x 2 days, strep expo sure Reason Comments Results Care Teams (unrecognized sec tion and content) Paint Dipper Relationship Specialty Start Date End Date Will Nj Chi PCP - General Gerontology 06/03/16 Paint Dipper Relationship Specialty Start Date End Date Will Nj Chi PCP - General Gerontology 06/03/16 Team Status: Active Member Role Status Dates Dr. Will Nj MD Family Provider Active Dr. Will Nj MD Primary Care Provider Active Team Status: Inactive Member Role Status Dates Dr. Will Nj MD Primary Care Provider, Referring Provider Active Eliazar TIM, PA Attending Provider Active Team Status: Inactive Member Role Status Dates Dr. Will Nj MD Primary Care Provider, Attending Provider Active Team Status: Active Member Role/Relationship Status Dates Dr. Will Nj MD Primary Care Provider Active Team Status: Inactive Member Role/Relationship Status Dates Dr. Will Nj MD Primary Care Provider Active Start: February 14, 2025 End: February 14, 2025 Dr. Ever Lo DO Emergency Provider Activ e Start: February 14, 2025 End: February 14, 2025 INFORMATION SOURCE (unrecogn ized section and content) DATE CREATED AUTHOR 07/17/2022 [facility] DATE CREATED AUTHOR AUTHOR'S HINAIZ ATION 02/23/2025 [facility] FOR RECORDS PERTAINING TO PATIENTS WHO ARE OR HAVE BEEN ENROLLED IN A CHEMICAL DEPENDENCY/SUBSTANCEABUSE PROGRAM, SOME INFORMATION MAY BE OMITTED. This clinical summary was aggregated from multiple sources. Caution should be exercised in using it in the provision of clinical care. This summary normalizes information from multiple sources, and as a consequence, information in this document may materially change the coding, format and clinical context of patient data. In addition, data may be omitted in some cases. CLINICAL DECISIONS SHOULD BE BASED ON THE PRIMARY CLINICAL RECORDS. [employer] provides no warranty or guarantee of the accuracy or completeness of information in this document.
[2025-05-01 20:09] LABS: Anion Gap 14 (5-15); BUN 14 mg/dL (4-19); BUN/Creat Ratio 21.0 RATIO (10-20); Calcium,Total 9.3 mg/dL (7.6-11.0); Carbon Dioxide 20.9 mmol/L (21.0-32.0); Chloride 106 mmol/L (98-108); Estimated Creatinine Clearance 73.40 ml/min (50-250); Glucose 102 mg/dL (70-99); Potassium 3.7 mmol/L (3.3-5.1); Troponin T High Sensitivity 7 ng/L (<=14)
[2025-05-01 21:30] VITALS: BP 146/96; PULSE 74; RESP 16; TEMP 36.2; O2SAT 98
== END 2025-05-01 21:31 | disposition home or self-care (01) ==
PROVIDERS: Emergency Provider Emergency Medicine; PCP Family Medicine Geriatric Medicine; Visit Provider Emergency Medicine
DX: S20.214A Contusion of middle front wall of thorax, initial encounter (principal); V43.52XA Car driver injured in collision with other type car in traffic accident, initial encounter; F41.9 Anxiety disorder, unspecified; F32.A Depression, unspecified; I45.10 Unspecified right bundle-branch block; Z79.899 Other long term (current) drug therapy
CPT/HCPCS: 70450; 71250; 72125; 80048; 84484; 85025; 93005; 99285

== ENCOUNTER → 2025-05-30 | Outpatient (CLI) | payer MEDICARE, BC, SELFPAY ==
--- NOTE | 2025-05-30 17:50 | CT_ITS ---
PROCEDURE: CT/CTA Chest W/WO Contrast
== END | disposition home or self-care (01) ==
LOC: CT 17:52
PROVIDERS: PCP Family Medicine Geriatric Medicine; Referring Provider Family Medicine Geriatric Medicine; Visit Provider Family Medicine Geriatric Medicine
DX: R06.02 Shortness of breath (principal); R07.89 Other chest pain
CPT/HCPCS: 71275; Q9967

== ENCOUNTER → 2025-07-25 | Outpatient (CLI) | payer MEDICARE, BC, SELFPAY ==
[2025-07-25 14:32] LABS: Hematocrit 40.6 % (37-47); Hemoglobin 13.6 g/dL (12.0-15.0); Immature Granulocytes Count 0.010 X10^3/uL (0.0-0.0); Mean Corp Hgb Conc 33.5 g/dL (32-36); Mean Corpuscular Volume 88.1 fL (81-99); Mean Platelet Vol. 9.8 fl (6.2-12.0); NRBC Flagged by Analyzer 0 % (0-5); Platelet Count 318 K/mm3 (150-450); RBC Distribution Width CV 13.8 % (11.6-14.6); RBC Distribution Width SD 44.9 fl (35.1-43.9); Red Blood Count 4.61 M/mm3 (4.2-5.4); White Blood Count 5.8 K/mm3 (4.4-11.0)
[2025-07-25 15:23] LABS: AST(SGOT) 20 U/L (<=31); Alanine Aminotransfer ALT/SGPT 17 U/L (<=34); Albumin, Serum 4.2 g/dL (3.4-4.8); Alkaline Phosphatase 67 U/L (35-104); Anion Gap 12 (7-18); BUN 13 mg/dL (4-19); BUN/Creat Ratio 17.9 RATIO (10-20); Calcium,Total 9.1 mg/dL (7.6-11.0); Carbon Dioxide 23.4 mmol/L (20.0-29.0); Chloride 105 mmol/L (96-106); Globulin 3.1 g/dL (2.2-4.2); Glucose 126 mg/dL (70-99); Potassium 3.8 mmol/L (3.5-5.1); Vitamin D,25 Hydroxy 12.6 ng/mL (30-100)
[2025-07-25 22:17] LABS: Xtra Tube Kwok EXTRA TUBE
== END | disposition home or self-care (01) ==
PROVIDERS: PCP Family Medicine Geriatric Medicine; Visit Provider Family Medicine Geriatric Medicine
DX: I10 Essential (primary) hypertension (principal); E55.9 Vitamin D deficiency, unspecified; R73.9 Hyperglycemia, unspecified
CPT/HCPCS: 36415; 80053; 82306; 83036; 84443; 85025